=== PATIENT | female | born 1945 | race Caucasian/White ===

== ENCOUNTER 2018-05-27 18:25 | Emergency (ER) | payer MEDICARE, OTHER, SELFPAY ==
[2018-05-27 18:30] VITALS: BP 172/89; PULSE 113; RESP 19; TEMP 37.3; O2SAT 98; BMI 31.2
--- NOTE | 2018-05-27 19:18 | ED_ITS ---
HPI - Nausea/Vomiting/Diarrhea General Chief complaint: Nausea/Vomiting/Diarrhea Stated complaint: SENT BY EMS FOR FLUIDS/ LABWORK Time Seen by Provider: 05/27/18 18:49 Source: patient Mode of arrival: ambulatory Limitations: no limitations History of Present Illness HPI Narrative: Patient is a 72-year-old female who several days ago had several episodes of nausea vomiting and diarrhea. She states she has not had any of those symptoms for the past 12 hr. [place] blood work done because she is stage IV renal failure she stated that she came to the emergency department just to have blood drawn. She states that her heart rate normally is just above 100. she reports no nausea vomiting. Related Data Home Medications Medication Instructions Recorded Confirmed lisinopril #0 06/17/16 Previous Rx's Medication Instructions Recorded citalopram 40 mg PO QDAY #90 tab 07/16/16 lisinopril-hydrochlorothiazide 1 tab PO QDAY #90 tab 07/16/16 nitrofurantoin monohyd/m-cryst 100 mg PO BID #10 cap 07/16/16 [Macrobid] Review of Systems Constitutional Denies fever(s) and Denies headache(s) ENT Ears, Nose, Mouth, and Throat: Denies vertigo and Denies headache(s) Cardiovascular Denies chest pain and Denies dyspnea Respiratory Denies dyspnea Gastrointestinal Gastrointestinal: Denies diarrhea, Denies nausea and Denies vomiting Genitourinary Denies dysuria Musculoskeletal Denies myalgias and Denies arthralgias Integumentary/Breasts Denies rash Neurologic Denies vertigo and Denies headache(s) PFSH Medical History Renal disease (Acute) Surgical History No pertinent past surgical history (Acute) Social History Smoking Status: Never smoker Exam Initial Vital Signs Initial Vital Signs: Vital Signs Temperature 99.2 F 05/27/18 18:30 Pulse Rate 113 H 05/27/18 18:30 Respiratory Rate 19 05/27/18 18:30 Blood Pressure 172/89 H 05/27/18 18:30 Pulse Oximetry 98 05/27/18 18:30 Const General: cooperative, healthy appearing, comfortable, well developed, well groomed and No acute distress Orientation: alert, awake and oriented x3 HENMT Head: normal to inspection and normocephalic Resp Effort & Inspection: normal respiratory effort Cardio Rate: tachycardic Rhythm: regular rhythm GI Inspection: non-distended Palpation: soft Skin Lesions: no lesions Rashes: no rashes Neuro General: alert, awake and oriented x3 Extrem General: normal to inspection and capillary refill normal Psych Appearance: grossly normal and well kempt Course Orders Ordered: ED Orders 05/27/18 19:32 Basic Metabolic Panel Stat Complete Blood Count AUTO DIFF Stat Vital Signs - 8 hr 05/27/18 18:30 Temperature 99.2 F Pulse Rate 113 H Respiratory Rate 19 Blood Pressure 172/89 H Pulse Oximetry 98 MDM - Nausea/Vomiting/Diarrhea Lab Data Attestation: I reviewed the patient's lab results. Result diagrams: 05/27/18 19:32 05/27/18 19:32 Lab Results 05/27/18 05/27/18 Range/Units 19:32 19:32 WBC 10.4 (4.5-11.0) X10^3/uL RBC 3.92 L (4.0-5.2) X10^6/uL Hgb 13.8 (12.0-16.0) g/dL Hct 40.3 (36-46) % MCV 102.9 H (80-100) fL MCH 35.2 H (26-34) PG MCHC 34.2 (30-36) % RDW 13.3 (11.6-14.8) % Plt Count 269 (150-400) X10^3/uL Neut % (Auto) 62.4 (50-75) % Lymph % (Auto) 29.5 (25-40) % [place] % (Auto) 7.5 (3-14) % Eos % (Auto) 0.2 L (2-4) % Baso % (Auto) 0.4 (0-2) % Neut # (Auto) 6500 H (0317-9605) /uL Sodium 141 (137-145) mmol/L Potassium 3.9 (3.4-5.1) mmol/L Chloride 104 (98-107) mmol/L Carbon Dioxide 22 (22-32) mmol/L BUN 23 H (7-17) mg/dL Creatinine 2.10 H (0.52-1.04) mg/dL Estimated GFR 23.1 L (>60) mL/min BUN/Creatinine Ratio 11.0 (6-22) Glucose 110 (80-110) mg/dL Calcium 9.5 (8.4-10.2) mg/dL MDM Narrative Medical decision making narrative: patient stated that she was only here to get her blood drawn. She did not want IV fluids. She states she was not nauseous. She did not want to stay for the results because she [place] I did draw the blood for her. I informed her that she needed to contact her primary care doctor tomorrow and request the results. She expressed understanding and agreement this plan. Discharge Plan Departure Patient Disposition: Home Clinical Impression: Nausea & vomiting, Renal disease Discharge Date/Time: 05/27/18 19:45 Interventions: ED Discharge Assessment Last Done: 05/27/18 19:44 Instructions: DI for Nausea -- Adult, DI for Vomiting -- Adult Activity Restrictions/Additional Instructions: per your request you were discharged today before your labs resulted. Call your primary care doctor tomorrow. He can contact the hospital to get the results of these labs. Return to the emergency department for any new or worsening symptoms Prescriptions: No Action lisinopril 5 mg Tablet Qty: 0 RF: 0 citalopram 40 MG tablet 40 mg PO QDAY Qty: 90 RF: 3 lisinopril-hydrochlorothiazide 20 MG/25 MG tablet 1 tab PO QDAY Qty: 90 RF: 3 nitrofurantoin monohyd/m-cryst [Macrobid] 100 MG capsule 100 mg PO BID Qty: 10 RF: 0
[2018-05-27 19:37] LABS: Add Manual Diff / Slide Review NO; Basophils Percent Auto 0.4 % (0-2); Eosinophils Percent Auto 0.2 % (2-4); Hematocrit 40.3 % (36-46); Hemoglobin 13.8 g/dL (12.0-16.0); Lymphocytes Percent Auto 29.5 % (25-40); Mean Corpuscular HGB Conc 34.2 % (30-36); Mean Corpuscular Hemoglobin 35.2 PG (26-34); Mean Corpuscular Volume 102.9 fL (80-100); Monocytes Percent Auto 7.5 % (3-14); Neutrophils Absolute Auto 6500 /uL (3000-5900); Neutrophils Percent Auto 62.4 % (50-75); Platelet Count 269 X10^3/uL (150-400); Red Blood Cell Count 3.92 X10^6/uL (4.0-5.2); Red Cell Distribution Width 13.3 % (11.6-14.8); White Blood Cell Count 10.4 X10^3/uL (4.5-11.0)
[2018-05-27 19:49] LABS: Blood Urea Nitrogen 23 mg/dL (7-17); Calcium 9.5 mg/dL (8.4-10.2); Carbon Dioxide 22 mmol/L (22-32); Chloride 104 mmol/L (98-107); Estimated Glomerular Filt Rate 23.1 mL/min (>60); Glucose 110 mg/dL (80-110); HEMOLYSIS < 15 (0-50); Potassium 3.9 mmol/L (3.4-5.1); Sodium 141 mmol/L (137-145)
== END 2018-05-27 19:45 | disposition home or self-care (01) ==
PROVIDERS: Emergency Provider Emergency Medicine; Family Provider Family Medicine; PCP Student in an Organized Health Care Education/Training Program
DX: N28.9 Disorder of kidney and ureter, unspecified (principal); R11.2 Nausea with vomiting, unspecified
CPT/HCPCS: 80048; 85025; 99282; 99283

== ENCOUNTER → 2018-12-13 09:54 | Outpatient (CLI) | payer MEDICARE, OTHER, SELFPAY ==
--- NOTE | 2018-12-13 | DI.CT.S_ITS ---
PROCEDURE: CT KIDNEY URETER BLADDER (KUB) INDICATIONS: CALCULUS OF KIDNEY TECHNIQUE: Noncontrast 5 mm thick sections acquired from the diaphragms to the symphysis. 5 mm thick coronal and sagittal reformats were then performed. For radiation dose reduction, the following was used: automated exposure control, adjustment of mA and/or kV according to patient size. COMPARISON: None. FINDINGS: Image quality: Excellent. Lung bases: Lung bases are clear. Heart size is normal. Bilateral breast implants partially visualized, partially calcified, showing no evidence of implant rupture. Urinary system: Both kidneys are normal in size. There are several right-sided nonobstructive 1-2 mm renal collecting system calculi, best seen at the middle and lower thirds of the collecting system of the right kidney. The patient has reportedly undergone left-sided lithotripsy one week ago, and there is a 3 mm calculus within the lower third collecting system of the left kidney, nonobstructive, seen on series 2 image 43. No hydronephrosis or perinephric fat stranding. Both ureters appear non-dilated throughout their expected courses. Bladder wall thickness is normal; no calcified bladder stones. A double pigtail left ureteral stent is in normal position. Other solid organs: Liver is normal in size. Gallbladder is not seen. Pancreas is normal in contours. Spleen is normal in size. No adrenal nodules. Peritoneum and bowel: Unenhanced bowel loops demonstrate normal wall thickness and caliber. No free fluid or air. Nodes and vessels: No retroperitoneal or mesenteric adenopathy by size criteria. Aorta and inferior vena cava are normal in caliber. Abdominal wall: No ventral hernias. Pelvis: No free pelvic fluid. No inguinal hernias or adenopathy. Bones: No suspicious bony lesions. No vertebral body compression fractures. IMPRESSION: 1. Residual 3 mm nonobstructive calculus is present within the lower third left renal collecting system in this patient who reportedly has undergone left-sided lithotripsy approximately one week ago. 2. The course of the double pigtail left ureteral catheter shows no adjacent calculus within the limits of resolution of this study, with upper and lower pigtails in normal position. No perinephric inflammation or hematoma seen. Incidental note is made of several 1-2 mm right lower third renal collecting system nonobstructive calculi. Dictated by: Kendrick Milan M.D. on 12/13/2018 at 11:04 Approved by: Kendrick Milan M.D. on 12/13/2018 at 11:17
== END ==
PROVIDERS: Visit Provider Specialist
DX: N20.0 Calculus of kidney (principal); Z96.0 Presence of urogenital implants
CPT/HCPCS: 74176

== ENCOUNTER 2021-06-30 16:57 | Observation (INO) | payer MEDICARE, OTHER, SELFPAY ==
[2021-06-30] VITALS (21 sets, daily range): BP systolic 124–185; BP diastolic 57–88; PULSE 100–120; RESP 8–31; TEMP 36.4–36.7; O2SAT 90–97; BMI 28.8
--- NOTE | 2021-06-30 17:03 | DI.CT.S_ITS ---
PROCEDURE: CT ABDOMEN PELVIS WO CON INDICATIONS: n/v/d since , abd pain, stage 4 CKD TECHNIQUE: Noncontrast 5 mm thick sections acquired from the diaphragms to the symphysis. 5 mm coronal and sagittal reformats were then performed. For radiation dose reduction, the following was used: automated exposure control, adjustment of mA and/or kV according to patient size. COMPARISON: [facility], CT, ABDOMEN/PELVIS WITHOUT CONTRAS, 06/19/2016, 12:27. FINDINGS: Image quality: Excellent. ABDOMEN: Lung bases: Lung bases are clear. Heart size is normal. Moderate coronary artery calcifications. Bilateral calcified breast implants. Solid organs: Liver is normal in size. Interval resolution of diffuse hepatic steatosis. Gallbladder is likely surgically absent . Pancreas is normal in contours. Spleen is normal in size. No adrenal nodules. There is no hydronephrosis. There are bilateral nonobstructing renal stones. Interval increase in size of individual renal stones. Peritoneum and bowel: Jejunal loops are mildly dilated. Ileal loops are decompressed. Findings are consistent with earlier partial small bowel obstruction. Nodes and vessels: No retroperitoneal or mesenteric adenopathy by size criteria. Aorta and inferior vena cava are normal in caliber. Miscellaneous: No ventral hernias. PELVIS: Genitourinary: Bladder wall thickness is normal. Miscellaneous: No inguinal hernias or adenopathy. Uterus is surgically absent. Bones: Bilateral total hip arthroplasties result in significant metallic artifact in the pelvis. Lumbar degenerative change. No lytic or blastic bony lesions. No compression fractures. IMPRESSION: 1. Findings are consistent with earlier partial small bowel obstruction. 2. Remote hysterectomy and cholecystectomy. 3. Resolution of hepatic steatosis. 4. Bilateral nephrolithiasis. Dictated by: Rosendo Olson M.D. on 06/30/2021 at 18:16 Approved by: Rosendo Olson M.D. on 06/30/2021 at 18:23
--- NOTE | 2021-06-30 17:04 | ED.ABDPAIN ---
HPI - Abdominal Pain General Chief Complaint: Weakness Stated Complaint: Gen. Weakness Time Seen by Provider: 06/30/21 17:02 Source: patient and EMS Mode of arrival: EMS Limitations: no limitations History of Present Illness HPI narrative: 75-year-old female comes emergency department with 4 days of nausea, vomiting and diarrhea. Patient states she had nausea for the 1st 2 days she has been taking Zofran which has helped that she has been able take some Pedialyte but she has continued to have diarrhea and generalized abdominal pain. Patient states she has felt shaky, had cramping in her extremities. She has not had fevers or chills. No cough cold or congestion. No chest pain or shortness of breath. She complains of abdominal discomfort it is not localized any particular area. No back or flank pain. She denies urinary symptoms. She has a history significant for stage 4 chronic kidney disease she states that she sees a auto hauler Dr. Larose but there has not been any discussion of dialysis. She also follows with Dr. Roman as she has had a history of kidney stones and had septic shock was in the ICU for a week with obstructing kidney stones several years ago. Patient denies any bright red blood or black in her diarrheal stools. She has 4-5 times daily but states not very much stool. She is allergic to [place]. No tobacco, alcohol or illicit. She lives on [address] She saw the medics on Thursday they gave her Zofran encouraged her to call them back if she was not improving she did today ultimately they contacted her left and she was airlifted here. She was slightly tachycardic at the 100 range for air left but no other major vital sign abnormalities in route. Related Data Home Medications Medication Instructions Recorded Confirmed lisinopril 5 mg tablet #0 06/17/16 Previous Rx's Medication Instructions Recorded citalopram 40 mg tablet 40 mg PO QDAY #90 tab 07/16/16 lisinopril 20 1 tab PO QDAY #90 tab 07/16/16 mg-hydrochlorothiazide 25 mg tablet nitrofurantoin 100 mg PO BID #10 cap 07/16/16 monohydrate/macrocrystals 100 mg capsule (Macrobid) Allergies Allergy/AdvReac Type Severity Reaction Status Date / Time pentazocine [From [place]] Allergy Verified 06/30/21 18:48 Review of Systems Review of Systems ROS Unobtainable: All systems reviewed & are unremarkable except as noted in HPI and below Patient History Medical History Renal disease Surgical History No pertinent past surgical history Social History Smoking Status: Never smoker Smoking Status: Never smoker Substance Use Type: does not use Exam Narrative Exam Narrative: GENERAL: Alert and oriented x three, female in mild distress. HEENT: Head normocephalic, atraumatic, EOMI, pupils reactive, face symmetric, moist mucous membranes NECK: Supple, full range of motion CARDIOVASCULAR: Regular rate and rhythm without murmurs, rubs or gallops. RESPIRATORY: Breath sounds equal bilaterally, no wheezes rales or rhonchi. ABDOMEN: Soft, generalized tenderness. Nondistended. bowel sounds all 4 quadrants. No guarding or rebound, rigidity, no mass : No CVA tenderness EXTREMITIES: Normal range of motion, no clubbing or edema. Neurovascularly intact NEUROLOGICAL: Cranial nerves II through XII grossly intact. Moving all extremities SKIN: Warm, dry, no petechiae, no rashes or lesions. Initial Vital Signs Initial Vital Signs: Vital Signs Temperature 97.6 F 06/30/21 17:01 Pulse Rate 100 H 06/30/21 17:01 Respiratory Rate 18 06/30/21 17:01 Blood Pressure 161/70 H 06/30/21 17:01 Pulse Oximetry 96 06/30/21 17:01 Course Orders Ordered: ED Orders 06/30/21 17:02 GI Panel (Film Array) Stat 06/30/21 17:03 CT abdomen pelvis wo con Stat 06/30/21 17:17 COVID19 -Nasal swab/Pre-Proc Stat 06/30/21 17:40 Complete Blood Count AUTO DIFF Stat Comprehensive Metabolic Panel Stat Lactate (Lactic Acid) Stat Lipase Stat MAG [Magnesium] Stat Troponin I Stat 06/30/21 17:50 Blood Culture Stat Magnesium Sulfate (Magnesium Sulfate) 2 gm in 50 mls @ 25 mls/hr IV NOW ONE Stop: 06/30/21 20:28 Last Admin: 06/30/21 18:50 Dose: 25 mls/hr Documented by: BTJANER Cosigned by: KAN Discontinued Medications Sodium Chloride (Normal Saline 0.9%) 1,000 mls @ 1,000 mls/hr IV BOLUS ONE Stop: 06/30/21 18:01 Ondansetron HCl (Ondansetron 4 Mg/2 Ml Inj) 4 mg IV NOW ONE Stop: 06/30/21 17:03 Last Admin: 06/30/21 18:50 Dose: 4 mg Documented by: BTONER Potassium Chloride (Potassium Chloride 20 Meq/15 Ml Udc) 40 meq PO NOW ONE Stop: 06/30/21 18:23 Last Admin: 06/30/21 18:50 Dose: 40 meq Documented by: BTONER Reevaluation(s) Reevaluation #1: Reviewed patient's findings. She is full code. Reviewed her electrolyte abnormalities, renal function which is at her baseline she states her GFR is typically 29. She is amenable to admission. Patient also aware that she will be boarding overnight in the emergency department although accepted by the hospitalist. Consultations Consultation #1: Dr. Wade, accepts for admission for vomiting and diarrhea, multiple lecture light abnormalities, tachycardiac in the setting of stage 4 kidney disease. Possible partial small-bowel obstruction on CT imaging but patient has not been vomiting for the last [address] Wade defers general surgery consult will contact if patient has persistent symptoms or change in her exam. Lactate is still pending. Vital Signs Vital signs: Vital Signs - 8 hr 06/30/21 17:01 06/30/21 17:29 06/30/21 17:30 Temperature 97.6 F Pulse Rate 100 H 104 H 104 H Respiratory Rate Blood Pressure 161/70 H Pulse Oximetry 96 97 96 06/30/21 18:00 06/30/21 18:30 Temperature Pulse Rate 104 H 120 H Respiratory Rate 26 H Blood Pressure Pulse Oximetry 96 MDM - Abdominal Pain Lab Data Result diagrams: 06/30/21 17:40 06/30/21 17:40 Labs: Lab Results 06/30/21 06/30/21 06/30/21 Range/Units 17:17 17:40 17:40 WBC 14.4 H (4.5-11.0) X10^3/uL RBC 3.40 L (4.0-5.2) X10^6/uL Hgb 12.0 (12.0-16.0) g/dL Hct 34.9 L (36-46) % MCV 102.9 H (80-100) fL MCH 35.4 H (26-34) PG MCHC 34.4 (30-36) % RDW 14.1 (11.6-14.8) % Plt Count 135 L (150-400) X10^3/uL Neut % (Auto) 80.1 H (50-75) % Lymph % (Auto) 14.6 L (25-40) % [place] % (Auto) 4.8 (3-14) % Eos % (Auto) 0.1 L (2-4) % Baso % (Auto) 0.4 (0-2) % Neut # (Auto) 78713 H (8515-5873) /uL Lymph # (Auto) 2100 (5859-5316) /uL [place] # (Auto) 700 (0-900) /uL Eos # (Auto) 0 (0-450) /uL Baso # (Auto) 100 (0-100) /uL Sodium 130 L (137-145) mmol/L Potassium 3.1 L (3.4-5.1) mmol/L Chloride 102 (98-107) mmol/L Carbon Dioxide 23 (22-32) mmol/L BUN 14 (7-17) mg/dL Creatinine 1.71 H (0.52-1.04) mg/dL Estimated GFR 29.0 L (>60) mL/min BUN/Creatinine Ratio 8.2 (6-22) Glucose 119 H (80-110) mg/dL Lactate (0.7-2.1) mmol/L Calcium 8.6 (8.4-10.2) mg/dL Magnesium (1.6-2.3) mg/dL Total Bilirubin 1.1 (0.2-1.3) mg/dL AST 37 H (14-36) IU/L ALT 20 (<35) IU/L Alkaline Phosphatase 54 (38-126) U/L Troponin I 0.029 (0.01-0.034) ng/mL Total Protein 6.4 (6.3-8.2) g/dL Albumin 3.6 (3.5-5.0) g/dL Globulin 2.8 (1.7-4.1) g/dL Albumin/Globulin Ratio 1.3 (1.0-2.8) Lipase 99 (23-300) U/L SARS-CoV-2 (PCR) Negative (Negative) 06/30/21 06/30/21 Range/Units 17:40 17:40 WBC (4.5-11.0) X10^3/uL RBC (4.0-5.2) X10^6/uL Hgb (12.0-16.0) g/dL Hct (36-46) % MCV (80-100) fL MCH (26-34) PG MCHC (30-36) % RDW (11.6-14.8) % Plt Count (150-400) X10^3/uL Neut % (Auto) (50-75) % Lymph % (Auto) (25-40) % [place] % (Auto) (3-14) % Eos % (Auto) (2-4) % Baso % (Auto) (0-2) % Neut # (Auto) (8829-7341) /uL Lymph # (Auto) (9467-2075) /uL [place] # (Auto) (0-900) /uL Eos # (Auto) (0-450) /uL Baso # (Auto) (0-100) /uL Sodium (137-145) mmol/L Potassium (3.4-5.1) mmol/L Chloride (98-107) mmol/L Carbon Dioxide (22-32) mmol/L BUN (7-17) mg/dL Creatinine (0.52-1.04) mg/dL Estimated GFR (>60) mL/min BUN/Creatinine Ratio (6-22) Glucose (80-110) mg/dL Lactate 1.9 (0.7-2.1) mmol/L Calcium (8.4-10.2) mg/dL Magnesium 0.9 L* (1.6-2.3) mg/dL Total Bilirubin (0.2-1.3) mg/dL AST (14-36) IU/L ALT (<35) IU/L Alkaline Phosphatase (38-126) U/L Troponin I (0.01-0.034) ng/mL Total Protein (6.3-8.2) g/dL Albumin (3.5-5.0) g/dL Globulin (1.7-4.1) g/dL Albumin/Globulin Ratio (1.0-2.8) Lipase (23-300) U/L SARS-CoV-2 (PCR) (Negative) Imaging Data CT scan - abdomen/pelvis: Radiologist's Impression: [address] [address] [address] Scan Report Signed Patient: Anthony Sepulveda MR#: [id number] : 1945 Acct:[id number] Age/Sex: 75 / F Date of Service: 06/30/21 Loc: ED Accession Number: [id number] ?? Procedure: CT abdomen pelvis wo con Ordering Provider: Chelsea Moyer D.O. PROCEDURE:? CT ABDOMEN PELVIS WO CON ? INDICATIONS:? n/v/d since , abd pain, stage 4 CKD ? TECHNIQUE:? Noncontrast 5 mm thick sections acquired from the diaphragms to the symphysis.? 5 mm coronal and sagittal reformats were then performed.? For radiation dose reduction, the following was used:? automated exposure control, adjustment of mA and/or kV according to patient size.? ? COMPARISON:? [facility], CT, ABDOMEN/PELVIS WITHOUT CONTRAS, 06/19/2016, 12:27. ? FINDINGS:? Image quality:? Excellent.? ? ABDOMEN:? Lung bases:? Lung bases are clear.? Heart size is normal.? Moderate coronary artery calcifications.? Bilateral calcified breast implants. ? Solid organs:? Liver is normal in size.? Interval resolution of diffuse hepatic steatosis.? Gallbladder is likely surgically absent .? Pancreas is normal in contours.? Spleen is normal in size.? No adrenal nodules.? There is no hydronephrosis.? There are bilateral nonobstructing renal stones.? Interval increase in size of individual renal stones. ? Peritoneum and bowel:? Jejunal loops are mildly dilated.? Ileal loops are decompressed.? Findings are consistent with earlier partial small bowel obstruction. ? Nodes and vessels:? No retroperitoneal or mesenteric adenopathy by size criteria.? Aorta and inferior vena cava are normal in caliber.? ? Miscellaneous:? No ventral hernias.? ? ? PELVIS:? Genitourinary:? Bladder wall thickness is normal.? ? Miscellaneous:? No inguinal hernias or adenopathy.? Uterus is surgically absent. ? Bones:? Bilateral total hip arthroplasties result in significant metallic artifact in the pelvis. Lumbar degenerative change.? No lytic or blastic bony lesions.? No compression fractures. ? ? IMPRESSION:? ? 1. Findings are consistent with earlier partial small bowel obstruction. ? 2. Remote hysterectomy and cholecystectomy. ? 3. Resolution of hepatic steatosis. ? 4. Bilateral nephrolithiasis.? ? ? Dictated by: Rosendo Olson M.D. on 06/30/2021 at 18:16 ? ? Approved by: Rosendo Olson M.D. on 06/30/2021 at 18:23?? ECG Data Attestation: I personally reviewed and interpreted this ECG as follows: Prior ECG tracings: not available for review Interpretation: Sinus rhythm. Left axis deviation. Nonspecific change. Q-wave in 3, AVF. MDM Narrative Medical decision making narrative: This is a 75-year-old female comes in with generalized weakness, cramping with 4 days of persistent diarrhea and the initial 2 days of vomiting which has resolved after using Zofran regularly. Patient has known chronic kidney disease stage 4 states her GFR is typically 29. She is on several medications for blood pressure and diuretic. Patient's labs show multiple electrolyte abnormalities although a stable renal function. Troponin is 0.029 with no acute EKG changes and no chest pain or shortness of breath. She has been persistently tachycardic. She has received fluids CT without contrast shows a possible partial small obstruction. Patient has not been having any emesis in the department for the past 2 days so this continue to be monitored. Spoke with hospitalist service who accepts. Electrolyte replacement was initiated here in the department. Discharge Plan Departure Patient Disposition: Admitted as Observation Clinical Impression: Partial obstruction of small intestine, Abnormal blood electrolyte level, Hyponatremia, Hypomagnesemia, Hypokalemia, CKD (chronic kidney disease), Nausea, vomiting, and diarrhea Admit Date/Time: 06/30/21 18:40 Admit Provider: Douglas Wade
[2021-06-30 17:36] LABS: COVID19 -Nasal RAPID Negative (Negative)
[2021-06-30 18:01] LABS: Add Manual Diff / Slide Review NO; Basophils Absolute Auto 100 /uL (0-100); Basophils Percent Auto 0.4 % (0-2); Eosinophils Absolute Auto 0 /uL (0-450); Eosinophils Percent Auto 0.1 % (2-4); Hematocrit 34.9 % (36-46); Lymphocytes Absolute Auto 2100 /uL (1100-4500); Lymphocytes Percent Auto 14.6 % (25-40); Mean Corpuscular HGB Conc 34.4 % (30-36); Mean Corpuscular Hemoglobin 35.4 PG (26-34); Mean Corpuscular Volume 102.9 fL (80-100); Monocytes Absolute Auto 700 /uL (0-900); Monocytes Percent Auto 4.8 % (3-14); Neutrophils Absolute Auto 11500 /uL (1500-7000); Neutrophils Percent Auto 80.1 % (50-75); Platelet Count 135 X10^3/uL (150-400); Red Cell Distribution Width 14.1 % (11.6-14.8); White Blood Cell Count 14.4 X10^3/uL (4.5-11.0)
[2021-06-30 18:14] LABS: Alanine Aminotransferase 20 IU/L (<35); Albumin 3.6 g/dL (3.5-5.0); Albumin Globulin Ratio 1.3 (1.0-2.8); Alkaline Phosphatase 54 U/L (38-126); Aspartate Aminotransferase 37 IU/L (14-36); BUN Creatinine Ratio 8.2 (6-22); Bilirubin Total 1.1 mg/dL (0.2-1.3); Blood Urea Nitrogen 14 mg/dL (7-17); Calcium 8.6 mg/dL (8.4-10.2); Carbon Dioxide 23 mmol/L (22-32); Chloride 102 mmol/L (98-107); Globulin 2.8 g/dL (1.7-4.1); Glucose 119 mg/dL (80-110); HEMOLYSIS < 15 (0-50); Lipase 99 U/L (23-300); Potassium 3.1 mmol/L (3.4-5.1); Sodium 130 mmol/L (137-145); Total Protein 6.4 g/dL (6.3-8.2)
[2021-06-30 18:26] LABS: Troponin I 0.029 ng/mL (0.01-0.034)
[2021-06-30 18:29] LABS: Magnesium 0.9 mg/dL (1.6-2.3)
[2021-06-30] MEDS: POTASSIUM CHLORIDE 20 MEQ/15 ML UDC 40 MEQ PO (18:50)
[2021-06-30] MEDS: ONDANSETRON 4 MG/2 ML INJ IV (18:50)
[2021-06-30] MEDS: MAGNESIUM SULFATE 2 GM/50 ML PIGGYBACK IV (18:50)
[2021-06-30 19:04] LABS: Lactate (Lactic Acid) 1.9 mmol/L (0.7-2.1)
[2021-06-30 20:05] LABS: Phosphorous 1.6 mg/dL (2.8-4.1)
[2021-06-30 20:09] LABS: COVID19 - ADMIT (NP swab/PCR) Negative (Negative)
[2021-06-30 20:22] LABS: Procalcitonin 0.65 ng/mL (<0.5)
[2021-06-30] MEDS: LORazepam 2 MG/ML INJ 1 MG IV (20:59)
--- NOTE | 2021-06-30 21:46 | PM.HP.1 ---
History of Present Illness History of Present Illness Date Patient Seen: 06/30/21 Time Patient Seen: 19:48 Chief complaint: Gen. Weakness Narrative: Anthony Sepulveda?72-year-old female with a medical history of renal stones, CKD stage 4, septic shock, HTN, depression with anxiety, gastric by pass 1971, cholecystectomy, hysterectomy who presented for 3-4 days of severe nausea, vomiting, and liquid diarrhea.? Pt denies fever, body aches, chills, cough, sore throat, chest pain, SOB, hemoptysis, hematuria, or melena. [place] work done because she is stage IV renal failure she stated that she came to the emergency department just to have blood drawn.? Patient complains of constant generalized throbbing abd pain, that improves slightly and temperarily with stooling, the patient has had 4 liquid stools and episodes of vomiting while in the ED. the patient reports that she had gastric bypass surgery done in 1971, hysterectomy, and cholecystectomy. She has been hospitalized in 2018 for septic shock secondary to a bacterial infection that was similar in chronic diarrhea to this. The patient reports that she has chronic diarrhea fairly consistently and takes Imodium 4 tablets in the morning and 4 tablets at night chronically for years, she also takes Lomotil regularly. The patient a colonoscopy last in the she states that Dr. Roman urology had assisted in the management of her diarrhea prior but she has not seen him in a year. Patient's accreditation specialist is Dr. Larose. But the patient states that she has never had diarrhea and vomiting to this degree prior. Patient denies any changes in medication, travel, food, recent illness, injury, or exposure. Patient notes that she has had a decreased appetite for the past several weeks, increased depressive and anxiety symptoms, without suicidal ideation. The patient also has a cat scratch injury to her lower left leg, with a secondary injury to her lower right leg. Patient presented with temp 97.6?, BP 161/70, HR 104-120, R 20 2-26, O2 saturation 93% on room air. WBC 14.4, with a left shift neutrophils 11,500, HCT 34.9, platelets 135, hyponatremia 130, hypokalemia 3.1, hypomagnesia 0.9, creatinine 1.71 (Digester Operator 05/2018-2.1, GFR 23.1) GFR 29, glucose 119, troponin 0.029. Patient meets SIRS/sepsis criteria: Sofa score 3. Patient's EKG I personally reviewed NSR at a rate of 100, left axis deviation, low QRS voltage, without ST or T-wave changes. Patient's abdomen pelvis CT was suggestive of possible early partial small-bowel obstruction, bilateral nephrolithiasis. Dr. Wdae Hospitalist reviewed imaging and felt that surgery did not need to be contacted at this time for consult. Patient admitted for sepsis due to diarrhea resulting in hyponatremia, hypokalemia, and hypomagnesia, possible partial small-bowel obstruction. Patient History Medical History CKD stage 4 secondary to hypertension Depression with anxiety Essential hypertension History of renal calculi History of septic shock Renal disease Surgical History (Updated 06/30/21 @ 22:18 by YANDEL Ortega-MARIELENA) History of bilateral hip replacements History of cervical spinal arthrodesis History of cholecystectomy History of gastric bypass History of hysterectomy History of laminectomy Family & Social History Family History (Updated 06/30/21 @ 22:20 by YANDEL Ortega-MARIELENA) Mother Asthma Father Heart disease Heart attack Social History: Patient lives with her daughter and is retired Safety & Behavioral: Patient feel safe in her home. Tobacco & Substance use: Alcohol: rarely Smoking Status Never smoker Substance Use Type does not use Meds Home Medications and Allergies Home Medications Medication Instructions Recorded Confirmed Type citalopram 40 mg tablet 40 mg PO QDAY #90 tab 07/16/16 06/30/21 Rx acetaminophen 325 mg tablet 650 mg PO Q6H PRN 06/30/21 06/30/21 History acetaminophen-caffeine 500 mg-65 2 tab PO Q6H PRN 06/30/21 06/30/21 History mg tablet (Excedrin Tension Headache) calcitriol 0.5 mcg capsule 0.5 mcg PO QAM 06/30/21 06/30/21 History carvedilol 6.25 mg tablet See Rx Instructions .ROUTE .COMPLEX 06/30/21 06/30/21 History diphenoxylate-atropine 2.5 1 tab PO DAILY PRN 06/30/21 06/30/21 History mg-0.025 mg tablet (Lomotil) hydrochlorothiazide 12.5 mg capsule 12.5 mg PO DAILY 06/30/21 06/30/21 History hydrocodone 10 mg-acetaminophen 1 tab PO PRN PRN 06/30/21 06/30/21 History 325 mg tablet loperamide 2 mg capsule 4 mg PO BID 06/30/21 06/30/21 History omeprazole 40 mg capsule,delayed 4 mg PO 3-4XD PRN 06/30/21 06/30/21 History release omeprazole 40 mg capsule,delayed 40 mg PO DAILY 06/30/21 06/30/21 History release potassium citrate 10 mEq (1,080 10 meq PO DAILY 06/30/21 06/30/21 History mg) tablet,extended release trazodone 50 mg tablet 100 mg PO QPM 06/30/21 06/30/21 History triamcinolone acetonide 55 mcg 2 spray INTRANASAL PRN PRN 06/30/21 06/30/21 History nasal spray aerosol (Nasacort) vitamin B complex 1 tab PO DAILY 06/30/21 06/30/21 History Allergies Allergy/AdvReac Type Severity Reaction Status Date / Time pentazocine [From Nicki] Allergy Verified 06/30/21 18:48 Review of Systems Review of Systems Narrative: All 12 point systems reviewed with the patient and are negative except otherwise documented. Exam Vital Signs (past 8 hours): - 06/30/21 17:01 06/30/21 17:29 06/30/21 17:30 Temperature 97.6 F Pulse Rate 100 H 104 H 104 H Respiratory Rate 18 22 22 Blood Pressure 161/70 H Pulse Oximetry 96 97 96 06/30/21 18:00 06/30/21 18:30 06/30/21 19:00 Temperature Pulse Rate 104 H 120 H 109 H Respiratory Rate 26 H 25 H Blood Pressure Pulse Oximetry 96 06/30/21 19:18 06/30/21 19:30 06/30/21 20:00 Temperature Pulse Rate 104 H 106 H 100 H Respiratory Rate 22 23 23 Blood Pressure 124/57 L 136/74 Pulse Oximetry 93 96 93 06/30/21 20:01 06/30/21 20:30 06/30/21 20:31 Temperature Pulse Rate 100 H 108 H 106 H Respiratory Rate 24 8 L 12 Blood Pressure 146/69 H 154/72 H Pulse Oximetry 95 96 96 06/30/21 21:00 Temperature Pulse Rate 102 H Respiratory Rate 28 H Blood Pressure Pulse Oximetry 95 Oxygen Delivery Method Room Air Narrative Exam Narrative: General: Patient is a well-developed, well-nourished pale, anxious, ill appearing, tachypneic female in no acute distress at this time. HEENT: Normocephalic, atraumatic, extraocular muscles intact, oral pharynx is clear and mucous membranes are dry. Neck is supple and symmetric, trachea is midline, no adenopathy, no thyroid enlargement, nontender, no masses palpated. Negative for JVD Chest: Normal AP diameter and contour without kyphoscoliosis, no nasal flaring, retractions, positive for tachypneic breathing. Lungs: Auscultation of all lung hebert are clear without adventitious sounds, wheezes, rhonchi, or rales. Cardio: Tachycardic rate and rhythm without murmur, rubs, or gallops, no carotid bruit, no cardiac pulsations present. Abdomen: Soft positive diffuse tenderness, unable to palpate for organomegaly, or masses due to pain. Bowel sounds are present in all 4 quadrants, no CVA tenderness. Musculoskeletal: Muscle strength and tone are equal within normal limits, no deformity, crepitus, effusions, cyanosis, or clubbing present. Positive bilateral lower extremity +3 pitting edema. Range of motion intact radial and pedal pulses are normal. Skin: Warm dry and intact without rashes, ulcerations or petechiae. Patient has bilateral lower anterior calf injuries with scabbing present, left noted healing, no signs of infection (cat scratch injury), right scab has erythemic edges present without signs of infection. Neuro: Alert and orientated x3, strength is +5/5 in all extremities, sensation to touch intact, no gross deficits noted of cranial nerves. Psych: Patient has a well-kept appearance, depressed affect, mental status attitude thought context and judgment are mostly appropriate for age. Objective Labs Result Diagrams: 06/30/21 17:40 06/30/21 17:40 Labs: Laboratory Results - last 24 hr 06/30/21 06/30/21 06/30/21 17:17 17:40 17:40 WBC 14.4 H RBC 3.40 L Hgb 12.0 Hct 34.9 L MCV 102.9 H MCH 35.4 H MCHC 34.4 RDW 14.1 Plt Count 135 L Neut % (Auto) 80.1 H Lymph % (Auto) 14.6 L [place] % (Auto) 4.8 Eos % (Auto) 0.1 L Baso % (Auto) 0.4 Neut # (Auto) 23050 H Lymph # (Auto) 2100 [place] # (Auto) 700 Eos # (Auto) 0 Baso # (Auto) 100 Sodium 130 L Potassium 3.1 L Chloride 102 Carbon Dioxide 23 BUN 14 Creatinine 1.71 H Estimated GFR 29.0 L BUN/Creatinine Ratio 8.2 Glucose 119 H Lactate Calcium 8.6 Phosphorus Magnesium Total Bilirubin 1.1 AST 37 H ALT 20 Alkaline Phosphatase 54 Troponin I 0.029 Total Protein 6.4 Albumin 3.6 Globulin 2.8 Albumin/Globulin Ratio 1.3 Lipase 99 Procalcitonin C. difficile Tox (PCR) SARS-CoV-2 (PCR) Negative 06/30/21 06/30/21 06/30/21 17:40 17:40 17:40 WBC RBC Hgb Hct MCV MCH MCHC RDW Plt Count Neut % (Auto) Lymph % (Auto) [place] % (Auto) Eos % (Auto) Baso % (Auto) Neut # (Auto) Lymph # (Auto) [place] # (Auto) Eos # (Auto) Baso # (Auto) Sodium Potassium Chloride Carbon Dioxide BUN Creatinine Estimated GFR BUN/Creatinine Ratio Glucose Lactate 1.9 Calcium Phosphorus 1.6 L Magnesium 0.9 L* Total Bilirubin AST ALT Alkaline Phosphatase Troponin I Total Protein Albumin Globulin Albumin/Globulin Ratio Lipase Procalcitonin C. difficile Tox (PCR) SARS-CoV-2 (PCR) 06/30/21 06/30/21 06/30/21 17:40 19:20 20:40 WBC RBC Hgb Hct MCV MCH MCHC RDW Plt Count Neut % (Auto) Lymph % (Auto) [place] % (Auto) Eos % (Auto) Baso % (Auto) Neut # (Auto) Lymph # (Auto) [place] # (Auto) Eos # (Auto) Baso # (Auto) Sodium Potassium Chloride Carbon Dioxide BUN Creatinine Estimated GFR BUN/Creatinine Ratio Glucose Lactate Calcium Phosphorus Magnesium Total Bilirubin AST ALT Alkaline Phosphatase Troponin I Total Protein Albumin Globulin Albumin/Globulin Ratio Lipase Procalcitonin 0.65 H C. difficile Tox (PCR) Cancelled SARS-CoV-2 (PCR) Negative Assessment & Plan Assessment & Plan narrative: Anthony Sepulveda?72-year-old female with a medical history of renal stones, CKD stage 4, septic shock, HTN, depression with anxiety, gastric by pass 1972, cholecystectomy, hysterectomy who presented for 3-4 days of severe nausea, vomiting, and liquid diarrhea.? She has been hospitalized in 2018 for septic shock secondary to a bacterial infection that was similar diarrhea to this. The patient reports that she has chronic diarrhea fairly consistently and takes Imodium 4 tablets in the morning and 4 tablets at night chronically for years, she also takes Lomotil regularly. This patient presents in sepsis and meets High Risk Host features, hospital admission for empiric high risk community-acquired antibiotic coverage as she is greater than 70 years of age, has comorbidities such as chronic kidney disease, essential hypertension, and has had a history of gastric bypass surgery, cholecystectomy, and hysterectomy. The patient is also had greater than 6 unformed stools in the past 24 hours. Patient admitted for sepsis due to diarrhea resulting in hyponatremia, hypokalemia, and hypomagnesia, possible partial small-bowel obstruction. 1. Sepsis as a result of hypovolemia secondary to vomiting and diarrhea, resulting in hyponatremia, hypokalemia, and hypomagnesia, with possible partial small-bowel obstruction, acute, present on admission -BP 161/70, HR 104-120, R 20 2-26, O2 saturation 93% on room air. -WBC 14.4, neut# 11,500, HCT 34.9, platelets 135, Na+130, K+3.1, Mag 0.9, procalcitonin 0.65 Patient meets SIRS/sepsis criteria: Sofa score 3. -EKG I personally reviewed NSR at a rate of 100, left axis deviation, low QRS voltage, without ST or T-wave changes. Patient's -Abdomen pelvis CT was suggestive of possible early partial small-bowel obstruction, bilateral nephrolithiasis. Dr. Wade Hospitalist reviewed imaging and felt that surgery did not need to be contacted at this time for consult. -Rule Out:(norovirus, rotavirus, adenoviruses, astrovirus, and others), bacteria (Salmonella,?Campylobacter,?Shigella, enterotoxigenic?Escherichia coli,?Clostridioides?[formerly?Clostridium]?difficile, and others), and protozoa (Cryptosporidium,?Giardia,?Cyclospora,?Entamoeba, and others) -blood cultures collected, GI panel, Stool cultres, Urine culture, Bartonella, CDiff -patient received 2 g magnesium in ED, 40 mEq potassium PO -sepsis fluid rehydration in ED, NS@80cc/hr -initiated Zosyn 4.5 q.8 hours and Flagyl -per High Risk Host coverage of enteric streptococci, Coliforms and anaerobes -Regular diet, unless vomiting resumes then change to NPO -Holding Immodium & lomital at this time due to patients chronic use, and low possibility of SBO (diarrhea/passing of stool continues), will continue to rehydrate and monitor volume & electrolytes status. May consider reinitiation, if liquid diarrhea is not improving with interventions. -Monitor telemedicine closely -risk of QT prolongation-is increased with combination with Zofran, and acetaminophen. Also monitor for torsades, cardiac arrest-in relation to chronic overuse Imodium and or Lomotil. 2. CKD stage 4 secondary to hypertension, acute on chronic, present on admission -Digester Operator 1.71 (Digester Operator 05/2018-2.1, GFR 23.1) GFR 29, glucose 119 -initial BP 161/70, 185/88 -continue patient's Coreg 3. Depression with anxiety, acute on chronic, present on admission -at the time of admit patient's depression 8/10, anxiety 7/10 without suicidal ideation -Ativan as needed for anxiety, continue patient's citalopram and trazodone 4. GERD, acute on chronic, present on admission -continue PPI 5. History of cervical spine fusion/ laminectomy, resulting in chronic back pain, acute on chronic, present on admission -continue hydrocodone Code status:Full Surrogate decision maker: Cheryl Couch COVID PCR:Negative COVID vaccination: Unknown DVT/VTE prophylaxis: Lovenox 30 and SCDs Disposition: Patient admitted for observation expected length of stay less than 2 midnights I have utilized all available immediate resources to obtain, update, or review the patient's current medications. I confirmed that the patient's advanced care plan is present, Code status is documented and/or surrogate decision maker is listed in the patient's medical record. Time Spent With Patient Critical Care time: I spent a total of [] minutes of critical care time on this patient's care today; this time is exclusive of procedural time. Scores GCS Rabia coma scale eye opening: Spontaneous Rabia coma scale verbal response: Orientated [place] coma scale motor response: Obey commands [place] coma scale total score: 15 SOFA PaO2/FIO2: < 400 mmHg Platelets: < 150 Bilirubin: < 1.2 mg/dL Hypotension: MAP >= 70 mmHg Rabia Coma Scale: 15 Renal: Creatinine 1.2-1.9 mg/dL SOFA Score: 3 Wells' Criteria for PE Clinical signs and symptoms of DVT: No PE is #1 Dx or equally likely: No Heart rate > 100: Yes Immobilization at least 3 days or surg in previous 4 weeks: Yes History of PE or DVT: No Hemoptysis: No Malignancy w/Treatment within 6 months or palliative: No Wells' PE Score total: 3.0
[2021-06-30 22:08] LABS: Campylobacter Not Detected (Not Detect)
[2021-06-30 22:09] LABS: Adenovirus F 40/41 Not Detected (Not Detect); Astrovirus Not Detected (Not Detect); Clostridium difficile toxin AB Not Detected (Not Detect); Cryptosporidium Not Detected (Not Detect); Cyclospora cayetanensis Not Detected (Not Detect); Entamoeba histolytica Not Detected (Not Detect); Enteroaggregative E.coli Not Detected (Not Detect); Enteropathogenic E.coli Not Detected (Not Detect); Enterotoxigenic E.coli It/st Not Detected (Not Detect); Giardia lamblia Not Detected (Not Detect); Norovirus GI/GII Not Detected (Not Detect); Plesiomonsa shigelloides Not Detected (Not Detect); Rotavirus A Not Detected (Not Detect); Salmonella Not Detected (Not Detect); Sapovirus Not Detected (Not Detect); Shiga-like toxin-prod E.coli Not Detected (Not Detect); Shigella/Enteroinvasive E.coli Not Detected (Not Detect); Vibrio Not Detected (Not Detect); Vibrio cholerae Not Detected (Not Detect); Yersinia enterocolitica Not Detected (Not Detect)
[2021-06-30 22:59] LABS: Appearance Urine UA SL CLOUDY; Bilirubin Urine UA NEGATIVE (NEGATIVE); Color Urine UA YELLOW; Glucose Urine UA NEGATIVE (Negative); Ketones Urine UA TRACE (NEGATIVE); Leukocyte Esterase Urine UA TRACE (NEGATIVE); Nitrite Urine UA NEGATIVE (Negative); Occult Blood Urine UA 1+ (Negative); Protein Urine UA TRACE (Negative); Urobilinogen Urine UA 0.2 E.U./dL (0.2)
[2021-06-30 23:23] LABS: Bacteria Urine Many (>30); RBC Urine None Seen (0-5/HPF); Squamous Epithelial Cell Urine 0-1 /HPF (0-5/HPF); WBC Urine 10-30/HPF (0-5/HPF)
[2021-06-30] MEDS: SODIUM CHLORIDE 0.9% 1,000 ML 80 ML IV (23:24)
[2021-06-30] MEDS: PIPERACILLIN/TAZO 4.5 GM in SODIUM CHLORIDE 0.9% 100 ML 25 ML IV (23:25)
[2021-06-30] MEDS: TRAZODONE 50 MG TABLET 100 MG PO (23:26)
[2021-06-30] MEDS: carvediloL 3.125 MG TABLET 6.25 MG PO (23:33)
[2021-06-30] MEDS: ACETAMINOPHEN 325 MG TABLET 650 MG PO (23:37)
[2021-07-01] VITALS (32 sets, daily range): BP systolic 136–153; BP diastolic 65–80; PULSE 85–109; RESP 19–41; TEMP 36.6–36.8; O2SAT 90–98; BMI 26.9
[2021-07-01] MEDS: metroNIDAZOLE 500 MG/100 ML PIGGYBACK 100 MG IV ×2 (00:07→07:02)
[2021-07-01] MEDS: ONDANSETRON 4 MG/2 ML INJ IV ×2 (04:59→12:34)
[2021-07-01 05:37] LABS: INR 1.2 (0.9-1.3); Prothrombin Time 13.5 SECONDS (10.1-12.7)
[2021-07-01 05:41] LABS: Add Manual Diff / Slide Review NO; Basophils Absolute Auto 0 /uL (0-100); Basophils Percent Auto 0.3 % (0-2); Eosinophils Absolute Auto 0 /uL (0-450); Eosinophils Percent Auto 0.4 % (2-4); Hematocrit 31.9 % (36-46); Hemoglobin 11.1 g/dL (12.0-16.0); Lymphocytes Absolute Auto 1500 /uL (1100-4500); Lymphocytes Percent Auto 17.4 % (25-40); Mean Corpuscular HGB Conc 34.7 % (30-36); Mean Corpuscular Hemoglobin 35.9 PG (26-34); Mean Corpuscular Volume 103.4 fL (80-100); Monocytes Absolute Auto 600 /uL (0-900); Monocytes Percent Auto 7.3 % (3-14); Neutrophils Absolute Auto 6600 /uL (1500-7000); Neutrophils Percent Auto 74.6 % (50-75); Platelet Count 101 X10^3/uL (150-400); Red Blood Cell Count 3.08 X10^6/uL (4.0-5.2); Red Cell Distribution Width 14.2 % (11.6-14.8); White Blood Cell Count 8.8 X10^3/uL (4.5-11.0)
[2021-07-01 05:45] LABS: Alanine Aminotransferase 18 IU/L (<35); Albumin 2.9 g/dL (3.5-5.0); Albumin Globulin Ratio 1.1 (1.0-2.8); Alkaline Phosphatase 46 U/L (38-126); Aspartate Aminotransferase 36 IU/L (14-36); BUN Creatinine Ratio 7.8 (6-22); Blood Urea Nitrogen 13 mg/dL (7-17); Calcium 7.9 mg/dL (8.4-10.2); Carbon Dioxide 24 mmol/L (22-32); Chloride 107 mmol/L (98-107); Estimated Glomerular Filt Rate 29.8 mL/min (>60); Globulin 2.6 g/dL (1.7-4.1); Glucose 106 mg/dL (80-110); HEMOLYSIS < 15 (0-50); Magnesium 1.5 mg/dL (1.6-2.3); Potassium 3.2 mmol/L (3.4-5.1); Sodium 132 mmol/L (137-145); Total Protein 5.5 g/dL (6.3-8.2)
[2021-07-01 05:58] LABS: Erythrocyte Sedimentation Rate 17 MM/HR (0-20)
[2021-07-01 06:10] LABS: C-Reactive Protein Quant 3.8 mg/dL (<1.0)
[2021-07-01 06:17] LABS: NT-proBNP (BNP-Adult 18+) 2480 pg/mL (<450)
[2021-07-01] MEDS: PIPERACILLIN/TAZO 4.5 GM in SODIUM CHLORIDE 0.9% 100 ML 200 ML IV (06:30)
[2021-07-01] MEDS: PANTOPRAZOLE DR 40 MG TABLET PO (06:30)
[2021-07-01] MEDS: LORazepam 2 MG/ML INJ 0.5 MG IV (07:37)
[2021-07-01] MEDS: MAGNESIUM SULFATE 2 GM/50 ML PIGGYBACK IV (08:12)
[2021-07-01] MEDS: ENOXAPARIN 30 MG/0.3 ML SYRINGE SUBCUT (09:21)
[2021-07-01] MEDS: carvediloL 3.125 MG TABLET 6.25 MG PO ×2 (09:53→22:52)
[2021-07-01] MEDS: CIPROFLOXACIN 250 MG TABLET PO ×2 (09:55→21:41)
[2021-07-01] MEDS: POTASSIUM CHLORIDE 20 MEQ TAB 40 MEQ PO (09:55)
[2021-07-01] MEDS: CITALOPRAM 10 MG TABLET 40 MG PO (09:55)
[2021-07-01] MEDS: ACETAMINOPHEN 325 MG TABLET 650 MG PO ×2 (12:34→21:41)
--- NOTE | 2021-07-01 13:12 | P.DS_ITS ---
History of Present Illness History of Present Illness Chief complaint: Gen Weakness Narrative: Anthony Sepulveda?72-year-old female with a medical history of renal stones, CKD stage 4, septic shock, HTN, depression with anxiety, gastric by pass 1971, cholecystectomy, hysterectomy who presented for 3-4 days of severe nausea, vomiting, and liquid diarrhea.? Pt denies fever, body aches, chills, cough, sore throat, chest pain, SOB, hemoptysis, hematuria, or melena.? [place] work done because she is stage IV renal failure she stated that she came to the emergency department just to have blood drawn.? Patient complains of constant generalized throbbing abd pain, that improves slightly and? temperarily with stooling, the patient has had 4 liquid stools and episodes of vomiting while in the ED. the patient reports that she had gastric bypass surgery done in 1971, hysterectomy, and cholecystectomy. She has been hospitalized in 2018 for septic shock secondary to a bacterial infection that was similar in chronic diarrhea to this.? The patient reports that she has chronic diarrhea fairly consistently and takes Imodium 4 tablets in the morning and 4 tablets at night chronically for years, she also takes Lomotil regularly.? The patient a colonoscopy last in the she states that Dr. Roman urology had assisted in the management of her diarrhea prior but she has not seen him in a year.? Patient's cigar sorter is Dr. Larose.? But the patient states that she has never had diarrhea and vomiting to this degree prior.? Patient denies any changes in medication, travel, food, recent illness, injury, or exposure.? Patient notes that she has had a decreased appetite for the past several weeks, increased depressive and anxiety symptoms, without suicidal ideation.? The patient also has a cat scratch injury to her lower left leg, with a secondary injury to her lower right leg. Patient presented with temp 97.6?, BP 161/70, HR 104-120, R 20 2-26, O2 saturation 93% on room air.? WBC 14.4, with a left shift neutrophils 11,500, HCT 34.9, platelets 135, hyponatremia 130, hypokalemia 3.1, hypomagnesia 0.9, creatinine 1.71 (Government Affairs Manager 05/2018-2.1, GFR 23.1) GFR 29, glucose 119, troponin 0.029.? Patient meets SIRS/sepsis criteria:? Sofa score 3.? Patient's EKG I personally reviewed NSR at a rate of 100, left axis deviation, low QRS voltage, without ST or T-wave changes.? Patient's abdomen pelvis CT was suggestive of possible early partial small-bowel obstruction, bilateral nephrolithiasis.? Dr. Wade Hospitalist reviewed imaging and felt that surgery did not need to be contacted at this time for consult.? Patient admitted for sepsis due to diarrhea resulting in hyponatremia, hypokalemia, and hypomagnesia, possible partial small-bowel obstruction. Discharge Providers Provider Date of admission: 06/30/21 18:40 Discharge Date: 07/01/21 Primary care physician: Erin Black MD Discharge provider: Douglas Wade MD Summary Hospital Course Discharge Diagnosis: 1. Acute gastroenteritis 2. Electrolyte disturbances 3. Acute dehydration 4. Chronic kidney disease stage IV 5. Urinary tract infection, likely incidental/asymptomatic Patient was admitted due to intractable vomiting and diarrhea for several days. There was initial concern for sepsis but sepsis was ultimately ruled out as overall presentation more consistent with mild volume depletion. Patient had mild hypokalemia and hypomagnesemia and received potassium and magnesium replacement. Her GI PCR panel was negative including C difficile assay. A CT scan from the ER showed possible obstruction though clinically she was having diarrhea and findings more consistent with pseudo obstruction. Renal function was stable relative to baseline with stage IV CKD. Patient was provided IV hydration, antibiotics, nausea control and electrolyte replacement. She is tolerating diet prior to discharge. In addition urine culture growing Gram- negative bacilli although this is likely incidental and not the cause of her GI symptoms. Status at Discharge Cognitive/behavioral status at discharge: oriented Functional status at discharge: independent ambulation Overall status at discharge: patient is progressing back to baseline Exam Vital Signs (past 8 hours): - 07/01/21 05:30 07/01/21 06:00 07/01/21 06:30 Pulse Rate 94 H 89 90 Respiratory Rate 26 H 20 20 Blood Pressure Pulse Oximetry 07/01/21 07:00 07/01/21 07:30 07/01/21 08:00 Pulse Rate 92 H 109 H 87 Respiratory Rate 34 H 27 H 20 Blood Pressure Pulse Oximetry 07/01/21 08:30 07/01/21 08:41 07/01/21 09:00 Pulse Rate 86 101 H 100 H Respiratory Rate 21 24 25 H Blood Pressure 139/65 Pulse Oximetry 95 07/01/21 09:53 Pulse Rate 98 H Respiratory Rate Blood Pressure 139/65 Pulse Oximetry Oxygen Delivery Method Room Air Narrative Exam Narrative: General: Alert, NAD Lungs: Clear Abdomen: Soft, nontender Extremities: No edema Neurological: Well oriented, speech and affect normal Objective Labs Result Diagrams: 07/01/21 04:36 07/01/21 04:36 Labs: Laboratory Results - last 24 hr 06/30/21 06/30/21 06/30/21 17:17 17:40 17:40 WBC 14.4 H RBC 3.40 L Hgb 12.0 Hct 34.9 L MCV 102.9 H MCH 35.4 H MCHC 34.4 RDW 14.1 Plt Count 135 L Neut % (Auto) 80.1 H Lymph % (Auto) 14.6 L [place] % (Auto) 4.8 Eos % (Auto) 0.1 L Baso % (Auto) 0.4 Neut # (Auto) 10221 H Lymph # (Auto) 2100 [place] # (Auto) 700 Eos # (Auto) 0 Baso # (Auto) 100 ESR PT INR Sodium 130 L Potassium 3.1 L Chloride 102 Carbon Dioxide 23 BUN 14 Creatinine 1.71 H Estimated GFR 29.0 L BUN/Creatinine Ratio 8.2 Glucose 119 H Lactate Calcium 8.6 Phosphorus Magnesium Total Bilirubin 1.1 AST 37 H ALT 20 Alkaline Phosphatase 54 Troponin I 0.029 C-Reactive Protein NT-Pro-B Natriuret Pep Total Protein 6.4 Albumin 3.6 Globulin 2.8 Albumin/Globulin Ratio 1.3 Lipase 99 Procalcitonin Urine Color Urine Appearance Urine pH Ur Specific [place] Urine Protein Urine Glucose (UA) Urine Ketones Urine Occult Blood Urine Nitrate Urine Bilirubin Urine Urobilinogen Ur Leukocyte Esterase Urine RBC Urine WBC Ur Squamous Epith Cells Urine Bacteria Ur Culture Indicated? Micro UA Comment Stl C. cayetanensis PCR Stool Rotavirus (PCR) Stool Adenovirus (PCR) Stool Astrovirus (PCR) Stool Cryptosporidium PCR Stl E.coli Shiga Tox PCR St Sh/Enteroin Ecoli PCR Stool E coli O157 PCR Stl Enterotoxigenic E PCR Stool EPEC (PCR) Stl E. histolytica PCR Stool Giardia Lamblia PCR Stool Sapovirus (PCR) Stl P. shigelloides PCR St Y.enterocolitica PCR Stool Vibrio (PCR) Stl Vibrio cholerae PCR Stl Enteroaggr Ecoli PCR Stl Norovirus GI/GII PCR Campylobacter (PCR) C. difficile Tox (PCR) SARS-CoV-2 (PCR) Negative Salmonella (PCR) 06/30/21 06/30/21 06/30/21 17:40 17:40 17:40 WBC RBC Hgb Hct MCV MCH MCHC RDW Plt Count Neut % (Auto) Lymph % (Auto) [place] % (Auto) Eos % (Auto) Baso % (Auto) Neut # (Auto) Lymph # (Auto) [place] # (Auto) Eos # (Auto) Baso # (Auto) ESR PT INR Sodium Potassium Chloride Carbon Dioxide BUN Creatinine Estimated GFR BUN/Creatinine Ratio Glucose Lactate 1.9 Calcium Phosphorus 1.6 L Magnesium 0.9 L* Total Bilirubin AST ALT Alkaline Phosphatase Troponin I C-Reactive Protein NT-Pro-B Natriuret Pep Total Protein Albumin Globulin Albumin/Globulin Ratio Lipase Procalcitonin Urine Color Urine Appearance Urine pH Ur Specific [place] Urine Protein Urine Glucose (UA) Urine Ketones Urine Occult Blood Urine Nitrate Urine Bilirubin Urine Urobilinogen Ur Leukocyte Esterase Urine RBC Urine WBC Ur Squamous Epith Cells Urine Bacteria Ur Culture Indicated? Micro UA Comment Stl C. cayetanensis PCR Stool Rotavirus (PCR) Stool Adenovirus (PCR) Stool Astrovirus (PCR) Stool Cryptosporidium PCR Stl E.coli Shiga Tox PCR St Sh/Enteroin Ecoli PCR Stool E coli O157 PCR Stl Enterotoxigenic E PCR Stool EPEC (PCR) Stl E. histolytica PCR Stool Giardia Lamblia PCR Stool Sapovirus (PCR) Stl P. shigelloides PCR St Y.enterocolitica PCR Stool Vibrio (PCR) Stl Vibrio cholerae PCR Stl Enteroaggr Ecoli PCR Stl Norovirus GI/GII PCR Campylobacter (PCR) C. difficile Tox (PCR) SARS-CoV-2 (PCR) Salmonella (PCR) 06/30/21 06/30/21 06/30/21 17:40 19:20 20:40 WBC RBC Hgb Hct MCV MCH MCHC RDW Plt Count Neut % (Auto) Lymph % (Auto) [place] % (Auto) Eos % (Auto) Baso % (Auto) Neut # (Auto) Lymph # (Auto) [place] # (Auto) Eos # (Auto) Baso # (Auto) ESR PT INR Sodium Potassium Chloride Carbon Dioxide BUN Creatinine Estimated GFR BUN/Creatinine Ratio Glucose Lactate Calcium Phosphorus Magnesium Total Bilirubin AST ALT Alkaline Phosphatase Troponin I C-Reactive Protein NT-Pro-B Natriuret Pep Total Protein Albumin Globulin Albumin/Globulin Ratio Lipase Procalcitonin 0.65 H Urine Color Urine Appearance Urine pH Ur Specific [place] Urine Protein Urine Glucose (UA) Urine Ketones Urine Occult Blood Urine Nitrate Urine Bilirubin Urine Urobilinogen Ur Leukocyte Esterase Urine RBC Urine WBC Ur Squamous Epith Cells Urine Bacteria Ur Culture Indicated? Micro UA Comment Stl C. cayetanensis PCR Stool Rotavirus (PCR) Stool Adenovirus (PCR) Stool Astrovirus (PCR) Stool Cryptosporidium PCR Stl E.coli Shiga Tox PCR St Sh/Enteroin Ecoli PCR Stool E coli O157 PCR Stl Enterotoxigenic E PCR Stool EPEC (PCR) Stl E. histolytica PCR Stool Giardia Lamblia PCR Stool Sapovirus (PCR) Stl P. shigelloides PCR St Y.enterocolitica PCR Stool Vibrio (PCR) Stl Vibrio cholerae PCR Stl Enteroaggr Ecoli PCR Stl Norovirus GI/GII PCR Campylobacter (PCR) C. difficile Tox (PCR) Cancelled SARS-CoV-2 (PCR) Negative Salmonella (PCR) 06/30/21 06/30/21 07/01/21 20:40 22:45 04:36 WBC 8.8 RBC 3.08 L Hgb 11.1 L Hct 31.9 L MCV 103.4 H MCH 35.9 H MCHC 34.7 RDW 14.2 Plt Count 101 L Neut % (Auto) 74.6 Lymph % (Auto) 17.4 L [place] % (Auto) 7.3 Eos % (Auto) 0.4 L Baso % (Auto) 0.3 Neut # (Auto) 6600 Lymph # (Auto) 1500 [place] # (Auto) 600 Eos # (Auto) 0 Baso # (Auto) 0 ESR PT INR Sodium Potassium Chloride Carbon Dioxide BUN Creatinine Estimated GFR BUN/Creatinine Ratio Glucose Lactate Calcium Phosphorus Magnesium Total Bilirubin AST ALT Alkaline Phosphatase Troponin I C-Reactive Protein NT-Pro-B Natriuret Pep Total Protein Albumin Globulin Albumin/Globulin Ratio Lipase Procalcitonin Urine Color Yellow Urine Appearance Sl cloudy Urine pH 5.0 Ur Specific [place] 1.020 Urine Protein Trace H Urine Glucose (UA) Negative Urine Ketones Trace H Urine Occult Blood 1+ H Urine Nitrate Negative Urine Bilirubin Negative Urine Urobilinogen 0.2 Ur Leukocyte Esterase Trace H Urine RBC None seen Urine WBC 10-30/hpf H Ur Squamous Epith Cells 0-1 /hpf Urine Bacteria Many (>30) H Ur Culture Indicated? Culture not indicate Micro UA Comment * Stl C. cayetanensis PCR Not detected Stool Rotavirus (PCR) Not detected Stool Adenovirus (PCR) Not detected Stool Astrovirus (PCR) Not detected Stool Cryptosporidium PCR Not detected Stl E.coli Shiga Tox PCR Not detected St Sh/Enteroin Ecoli PCR Not detected Stool E coli O157 PCR Not Reportable Stl Enterotoxigenic E PCR Not detected Stool EPEC (PCR) Not detected Stl E. histolytica PCR Not detected Stool Giardia Lamblia PCR Not detected Stool Sapovirus (PCR) Not detected Stl P. shigelloides PCR Not detected St Y.enterocolitica PCR Not detected Stool Vibrio (PCR) Not detected Stl Vibrio cholerae PCR Not detected Stl Enteroaggr Ecoli PCR Not detected Stl Norovirus GI/GII PCR Not detected Campylobacter (PCR) Not detected C. difficile Tox (PCR) Not detected SARS-CoV-2 (PCR) Salmonella (PCR) Not detected 07/01/21 07/01/21 07/01/21 04:36 04:36 04:36 WBC RBC Hgb Hct MCV MCH MCHC RDW Plt Count Neut % (Auto) Lymph % (Auto) [place] % (Auto) Eos % (Auto) Baso % (Auto) Neut # (Auto) Lymph # (Auto) [place] # (Auto) Eos # (Auto) Baso # (Auto) ESR 17 PT 13.5 H INR 1.2 Sodium 132 L Potassium 3.2 L Chloride 107 Carbon Dioxide 24 BUN 13 Creatinine 1.67 H Estimated GFR 29.8 L BUN/Creatinine Ratio 7.8 Glucose 106 Lactate Calcium 7.9 L Phosphorus Magnesium 1.5 L Total Bilirubin 1.0 AST 36 ALT 18 Alkaline Phosphatase 46 Troponin I C-Reactive Protein NT-Pro-B Natriuret Pep Total Protein 5.5 L Albumin 2.9 L Globulin 2.6 Albumin/Globulin Ratio 1.1 Lipase Procalcitonin Urine Color Urine Appearance Urine pH Ur Specific [place] Urine Protein Urine Glucose (UA) Urine Ketones Urine Occult Blood Urine Nitrate Urine Bilirubin Urine Urobilinogen Ur Leukocyte Esterase Urine RBC Urine WBC Ur Squamous Epith Cells Urine Bacteria Ur Culture Indicated? Micro UA Comment Stl C. cayetanensis PCR Stool Rotavirus (PCR) Stool Adenovirus (PCR) Stool Astrovirus (PCR) Stool Cryptosporidium PCR Stl E.coli Shiga Tox PCR St Sh/Enteroin Ecoli PCR Stool E coli O157 PCR Stl Enterotoxigenic E PCR Stool EPEC (PCR) Stl E. histolytica PCR Stool Giardia Lamblia PCR Stool Sapovirus (PCR) Stl P. shigelloides PCR St Y.enterocolitica PCR Stool Vibrio (PCR) Stl Vibrio cholerae PCR Stl Enteroaggr Ecoli PCR Stl Norovirus GI/GII PCR Campylobacter (PCR) C. difficile Tox (PCR) SARS-CoV-2 (PCR) Salmonella (PCR) 07/01/21 04:36 WBC RBC Hgb Hct MCV MCH MCHC RDW Plt Count Neut % (Auto) Lymph % (Auto) [place] % (Auto) Eos % (Auto) Baso % (Auto) Neut # (Auto) Lymph # (Auto) [place] # (Auto) Eos # (Auto) Baso # (Auto) ESR PT INR Sodium Potassium Chloride Carbon Dioxide BUN Creatinine Estimated GFR BUN/Creatinine Ratio Glucose Lactate Calcium Phosphorus Magnesium Total Bilirubin AST ALT Alkaline Phosphatase Troponin I C-Reactive Protein 3.8 H NT-Pro-B Natriuret Pep 2480 H Total Protein Albumin Globulin Albumin/Globulin Ratio Lipase Procalcitonin Urine Color Urine Appearance Urine pH Ur Specific [place] Urine Protein Urine Glucose (UA) Urine Ketones Urine Occult Blood Urine Nitrate Urine Bilirubin Urine Urobilinogen Ur Leukocyte Esterase Urine RBC Urine WBC Ur Squamous Epith Cells Urine Bacteria Ur Culture Indicated? Micro UA Comment Stl C. cayetanensis PCR Stool Rotavirus (PCR) Stool Adenovirus (PCR) Stool Astrovirus (PCR) Stool Cryptosporidium PCR Stl E.coli Shiga Tox PCR St Sh/Enteroin Ecoli PCR Stool E coli O157 PCR Stl Enterotoxigenic E PCR Stool EPEC (PCR) Stl E. histolytica PCR Stool Giardia Lamblia PCR Stool Sapovirus (PCR) Stl P. shigelloides PCR St Y.enterocolitica PCR Stool Vibrio (PCR) Stl Vibrio cholerae PCR Stl Enteroaggr Ecoli PCR Stl Norovirus GI/GII PCR Campylobacter (PCR) C. difficile Tox (PCR) SARS-CoV-2 (PCR) Salmonella (PCR) [facility] Medical History CKD stage 4 secondary to hypertension Depression with anxiety Essential hypertension History of renal calculi History of septic shock Renal disease Surgical History (Updated 06/30/21 @ 22:18 by KANNAN Ortega) History of bilateral hip replacements History of cervical spinal arthrodesis History of cholecystectomy History of gastric bypass History of hysterectomy History of laminectomy Family History (Updated 06/30/21 @ 22:20 by KANNAN Ortega) Mother Asthma Father Heart disease Heart attack Social History Smoking Status: Never smoker Discharge Plan Discharge Plan Patient Disposition: Home Provider Discharge Comment: You were treated for acute gastroenteritis, UTI and electrolytes disturbance. Continue taking Pedialite until you are feeling better. Finish prescribed antibiotic. Discharge orders & Medications Prescriptions: New ciprofloxacin HCl [Cipro] 250 mg tablet 250 mg PO BID 2 Days Qty: 4 0RF ondansetron HCl 4 mg tablet 4 mg PO Q6H PRN (Reason: nausea and vomiting) Qty: 14 0RF Continued citalopram 40 MG tablet 40 mg PO QDAY Qty: 90 3RF acetaminophen 325 mg Tablet 650 mg PO Q6H PRN (Reason: Pain (Scale Score 1-3)) 0RF carvedilol 6.25 mg tablet See Rx Instructions .ROUTE .COMPLEX 0RF Rx Instructions: take two 6.25 mg tabs q am take one 6.25 mg tab q pm loperamide 2 mg Capsule 8 mg PO BID 0RF trazodone 50 mg tablet 100 mg PO QPM 0RF Excedrin Tension Headache 500-65 mg Tablet 2 tab PO Q6H PRN (Reason: Headache) 0RF diphenoxylate-atropine [Lomotil] 2.5-0.025 mg Tablet 1 tab PO DAILY PRN (Reason: Pain (Scale Score 1-3)) 0RF hydrocodone-acetaminophen 10-325 mg tablet 1 tab PO PRN PRN (Reason: pain) 0RF omeprazole 40 mg capsule,delayed release(DR/EC) 4 mg PO 3-4XD PRN (Reason: Vomiting) 0RF omeprazole 40 mg Capsule,Delayed Release(Dr/Ec) 40 mg PO DAILY 0RF potassium citrate 10 mEq (1,080 mg) tablet extended release 10 meq PO DAILY 0RF calcitriol 0.5 mcg capsule 0.5 mcg PO QAM 0RF triamcinolone acetonide [Nasacort] 55 mcg Aerosol,[place] 2 spray INTRANASAL PRN PRN (Reason: Allergy Symptoms) 0RF Rx Instructions: administer into each nostril hydrochlorothiazide 12.5 mg capsule 12.5 mg PO DAILY 0RF vitamin B complex Tablet 1 tab PO DAILY 0RF Rx Instructions: 500 mcg Follow up/Referrals: Erin Black MD [Primary Care Provider] - Discharge Health Status Multidrug resistant organism: No MDRO Diet/Activity/Treatments Diet: Diet as Tolerated Discharge Data Primary Care Provider: Erin Black Attending Provider: Douglas Wade
[2021-07-01] MEDS: LOPERAMIDE 2 MG CAPSULE 4 MG PO (17:53)
[2021-07-01] MEDS: TRAZODONE 50 MG TABLET 100 MG PO (21:41)
[2021-07-02] MEDS: LOPERAMIDE 2 MG CAPSULE 4 MG PO ×3 (01:52→10:19)
[2021-07-02 02:00] VITALS: BP 143/76; PULSE 100; RESP 18; TEMP 36.7; O2SAT 98
[2021-07-02] MEDS: LORazepam 2 MG/ML INJ 0.5 MG IV (02:44)
[2021-07-02] MEDS: HYDROCODONE/ACET 10/325 TABLET 1 TAB PO ×2 (02:45→10:20)
[2021-07-02] MEDS: ONDANSETRON 4 MG ODT SL (04:30)
[2021-07-02 04:33] LABS: Acinetobacter baumannii Not Detected (Not Detect); Enterobacteriaceae species Not Detected (Not Detect); Enterococcus species Not Detected (Not Detect); Listeria monocytogenes Not Detected (Not Detect); Staphylococcus species Not Detected (Not Detect); Streptococcus agalactiae (Gr B Not Detected (Not Detect); Streptococcus pneumonia Not Detected (Not Detect); Streptococcus pyogenes (Gr A) Not Detected (Not Detect); Streptococcus species Not Detected (Not Detect)
[2021-07-02 04:34] LABS: Candida albicans Not Detected (Not Detect); Candida glabrata Not Detected (Not Detect); Candida krusei Not Detected (Not Detect); Candida parapsilosis Not Detected (Not Detect); Candida tropicalis Not Detected (Not Detect); E. coli Not Detected (Not Detect); Enterobacter cloacae complex Not Detected (Not Detect); Haemophilus influenzae Not Detected (Not Detect); Neisseria meningitidis Not Detected (Not Detect); Proteus species Not Detected (Not Detect); Pseudomonas aeruginosa Not Detected (Not Detect); Serratia marcescens Not Detected (Not Detect)
[2021-07-02 05:32] LABS: Add Manual Diff / Slide Review NO; Basophils Absolute Auto 0 /uL (0-100); Basophils Percent Auto 0.4 % (0-2); Eosinophils Absolute Auto 300 /uL (0-450); Eosinophils Percent Auto 3.4 % (2-4); Hematocrit 33.1 % (36-46); Hemoglobin 11.3 g/dL (12.0-16.0); Lymphocytes Absolute Auto 1900 /uL (1100-4500); Lymphocytes Percent Auto 24.5 % (25-40); Mean Corpuscular HGB Conc 34.2 % (30-36); Mean Corpuscular Hemoglobin 35.7 PG (26-34); Mean Corpuscular Volume 104.5 fL (80-100); Monocytes Absolute Auto 500 /uL (0-900); Neutrophils Absolute Auto 4900 /uL (1500-7000); Neutrophils Percent Auto 64.7 % (50-75); Platelet Count 110 X10^3/uL (150-400); Red Blood Cell Count 3.17 X10^6/uL (4.0-5.2); Red Cell Distribution Width 14.6 % (11.6-14.8); White Blood Cell Count 7.6 X10^3/uL (4.5-11.0)
[2021-07-02 05:41] LABS: Alanine Aminotransferase 20 IU/L (<35); Albumin Globulin Ratio 1.1 (1.0-2.8); Alkaline Phosphatase 41 U/L (38-126); Aspartate Aminotransferase 37 IU/L (14-36); BUN Creatinine Ratio 7.5 (6-22); Bilirubin Total 0.9 mg/dL (0.2-1.3); Blood Urea Nitrogen 11 mg/dL (7-17); Calcium 7.8 mg/dL (8.4-10.2); Carbon Dioxide 22 mmol/L (22-32); Chloride 111 mmol/L (98-107); Estimated Glomerular Filt Rate 34.6 mL/min (>60); Globulin 2.8 g/dL (1.7-4.1); Glucose 89 mg/dL (80-110); HEMOLYSIS 43 (0-50); Potassium 3.4 mmol/L (3.4-5.1); Sodium 134 mmol/L (137-145); Total Protein 5.8 g/dL (6.3-8.2)
[2021-07-02 06:00] VITALS: BP 144/78; PULSE 99; RESP 16; TEMP 36.6; O2SAT 98
[2021-07-02] MEDS: PANTOPRAZOLE DR 40 MG TABLET PO (06:04)
--- NOTE | 2021-07-02 06:58 | PC.NURSE ---
Admit Note- Patient arrived to room via wheelchair at 2210. Patient alert and oriented and able to make needs known to staff. admit questions done, medications reviewed, physical assessment done, and robert check completed. allyven dressing placed to draining wound on right lower nelson. Multiple bruises noted on bilateral arms and legs. 2+ edema noted to BLE and upper arms. Patient oriented to bed and bed controls, room, lights, phone, menu, bathroom, and call fregoso/TV remote. Safety measures in place. Patient agrees to call for assistance. bed alarm activated. call freogso and phone within reach. will continue to monitor.
[2021-07-02 07:35] VITALS: BP 140/81; PULSE 101; RESP 16; TEMP 36.9; O2SAT 95
[2021-07-02] MEDS: DIPHENOXYLATE/ATROP 2.5/0.025 TABLET 2 EACH PO (09:06)
[2021-07-02] MEDS: carvediloL 3.125 MG TABLET 6.25 MG PO (09:06)
[2021-07-02] MEDS: CIPROFLOXACIN 250 MG TABLET PO (09:06)
[2021-07-02] MEDS: CITALOPRAM 10 MG TABLET 40 MG PO (09:06)
[2021-07-02] MEDS: ENOXAPARIN 30 MG/0.3 ML SYRINGE SUBCUT (09:06)
--- NOTE | 2021-07-02 09:17 | CM.DANOTE ---
DCP: Case received, EMR reviewed and met with patient. Introduced self and role. Was able to obtain information regarding patient's baseline activity status at home prior to hospitalization, as well as her current living situation. DCP assessment completed with information currently available. Patient is a 75 year old female who admitted on 06-30, to the care of the hospitalist team. PCP: Dr. Black. Payer: confirmed: Medicare/[facility]. Patient came to the hospital via ambulance, was airlifted from [place]. Patient was noted to have weakness, as well as well as increased abdominal pain and loose stools. Patient had originally came to the ER to have her labs checked. Patient was noted to have possible early partial small-bowel obstruction, bilateral nephrolithiasis. She was admitted for sepsis due to diarrhea resulting in hyponatremia, hypokalemia, and hypomagnesia. Patient has history of CKD stage 4, as well as renal stones. Met with patient in her room. She is alert and oriented, pleasant. She was sitting on the edge of the bed. She resides in [place] on [facility] with her daughter, Cheryl Couch. She uses a FWW at her baseline, and has a solder sprayer at home, for her daughter works. She indicated that her caregiver assists with cooking and cleaning. P: Patient is to be discharged home today, and will be picked up at approximately 10:30, by her daughter, to get [place] 11:00 ferry. She will be getting a prior boarding pass. Gissell Hinkle RN/Motor Boss Discharge Planning/Care Management CM Discharge Assessment Start: 07/02/21 09:15 Freq: Status: Active Protocol: Document 07/02/21 09:15 (Rec: 07/02/21 09:17 [id number]) Discharge Planning Assessment Assigned Fireworks Inspector Gissell Hinkle RN/Motor Boss Advance Directives? Yes Advance Directives on File No History Provided By Patient,Medical Record Prior Living Arrangements House Household Members children Type of transporation used prior to Relies on Others admit Independent with ADL's Yes Is patient alert and oriented? Yes Needs Assistance With Meal Prep,Home Chores / Shopping Caregiver for Another No DME Already Rented / Owned FWW / Walker Barriers to Discharge No Discharge Plan Home Transportation Arrangement Daughter Referrals Initiated None needed Whiteboard Updated in Patient Room with Yes name and ext. # of Fireworks Inspector Review Status In Process Next Review Type Continued Stay Review
--- NOTE | 2021-07-02 10:43 | PC.NURSE ---
Assumed care of pt at 0700. Resting in bed during hand-off. Denies pain. Reports chronic loose stools, using BSC for toileting. Steady on feet. SBA. Discharge to home order by provider. Pt verbalized understanding of all d/c instructions. Pt states she will call PCP to schedule f/up. Escorted off unit via w/c by marine photographer to private vehicle. Pt left in stable condition with all personal belongings.
[2021-07-03 10:08] LABS: B. henselae IgG Negative titer (Neg:<1:320); B. henselae IgM Negative titer (Neg:<1:100); B. quintana IgG Negative titer (Neg:<1:320); B. quintana IgM Negative titer (Neg:<1:100)
== END 2021-07-02 10:30 | disposition home or self-care (01) ==
LOC: ED 18:40 → AC 18:41
PROVIDERS: Nurse Practitioner Family; Admitting Provider Internal Medicine; Emergency Provider Emergency Medicine; Family Provider Family Medicine; PCP Student in an Organized Health Care Education/Training Program; Referring Provider Emergency Medicine; Visit Provider Internal Medicine
DX: K52.9 Noninfective gastroenteritis and colitis, unspecified (principal); I12.9 Hypertensive chronic kidney disease with stage 1 through stage 4 chronic kidney disease, or unspecified chronic kidney disease; N18.4 Chronic kidney disease, stage 4 (severe); F32.9 Major depressive disorder, single episode, unspecified; F41.9 Anxiety disorder, unspecified; K21.9 Gastro-esophageal reflux disease without esophagitis; E86.0 Dehydration; N39.0 Urinary tract infection, site not specified; B96.1 Klebsiella pneumoniae [K. pneumoniae] as the cause of diseases classified elsewhere; Z20.822 Contact with and (suspected) exposure to COVID-19
CPT/HCPCS: 36415; 74176; 80053; 81001; 83605; 83690; 83735; 83880; 84100; 84145; 84484; 85025; 85610; 85651; 86140; 86611; 87040; 87077; 87086; 87150; 87186; 87205; 87507; 87635; 93005; 93010; 96361; 96365; 96366; 96367; 96368; 96372; 96375; 96376; 99284; 99285; C9803; G0378; J1650; J2060; J2405; J2543; J3475

== ENCOUNTER → 2021-12-16 09:29 | Outpatient (CLI) | payer MEDICARE, OTHER, SELFPAY ==
[2021-07-01 22:54] VITALS: BMI 26.9
--- NOTE | 2021-12-16 09:38 | DI.CT.S_ITS ---
PROCEDURE: CT KIDNEY URETER BLADDER (KUB) INDICATIONS: Acute Kidney failure TECHNIQUE: Axial sections were acquired from the lung bases to the pubic symphysis. Coronal and sagittal reformats were performed. For radiation dose reduction, the following was used: automated exposure control, adjustment of mA and/or kV according to patient size. COMPARISON: [facility], CT, CT ABDOMEN PELVIS WO CON, 06/30/2021, 17:20. FINDINGS: Image quality: Excellent. Lung bases: Unremarkable. Visualized portions of the bilateral breast implants are intact. Heart: No significant findings. URINARY: Right Kidney: Normal size. There is a nonobstructing 3 mm calculus in the lower pole. No perinephric fat stranding. No hydronephrosis. Right Ureter: No hydroureter or ureterolithiasis where visualized. The distal ureter is obscured by streak artifact from the bilateral hip arthroplasties. Left Kidney: There is atrophy of the left renal cortex. There is severe left hydronephrosis, which is new when compared with the study dated June 30, 2021. No perinephric fat stranding. Low-density cortical cysts are noted. There is a nonobstructing 9 mm calculus in the midpole of the left kidney and a nonobstructing 3 mm calculus in the lower pole. The previously visualized 6 mm calculus within the upper pole of the left kidney is no longer visualized. Left Ureter: There is marked left hydroureter. 2 calculi are visualized within the mid left ureter, the largest of which measures 7 mm in diameter and the smaller of which measures 6 mm in diameter. These demonstrate approximately 1000 Hounsfield units in density. The downstream ureter is decompressed where visualized; however the distal ureter is obscured by metallic streak artifact. Bladder: The bladder is poorly characterized given streak artifact. ABDOMEN: Liver: Unremarkable. Gallbladder: Not visualized and likely surgically absent. Biliary ducts: Unremarkable. Pancreas: Unremarkable. Spleen: Unremarkable. Adrenal Glands: Unremarkable. Stomach and Bowel: Stomach, small bowel loops, and colon are unremarkable. Peritoneum: No abnormal intraperitoneal fluid. No free air. Ventral Wall: No hernia. Abdominal Nodes: No enlarged retroperitoneal or mesenteric lymph nodes. Vessels: Aorta and inferior vena cava are normal in size. PELVIS: Pelvic Organs: Unremarkable. Pelvic Nodes: Unremarkable. Miscellaneous: No inguinal hernias are seen. Bones: Unremarkable. S shaped scoliosis is redemonstrated throughout the thoracolumbar spine. IMPRESSION: 1. Left ureterolithiasis with severe left hydroureter and hydronephrosis. The largest left calculus measures 7 mm in diameter and demonstrates approximately 1000 Hounsfield units in density. 2. Nonobstructive bilateral nephrolithiasis. Dictated by: Shivani Prince M.D. on 12/16/2021 at 10:39 Approved by: Shivani Prince M.D. on 12/16/2021 at 10:46
== END ==
PROVIDERS: Family Provider Family Medicine; PCP Student in an Organized Health Care Education/Training Program; Referring Provider Specialist; Visit Provider Specialist
DX: N13.2 Hydronephrosis with renal and ureteral calculous obstruction (principal); N26.1 Atrophy of kidney (terminal); N17.9 Acute kidney failure, unspecified
CPT/HCPCS: 74176

== ENCOUNTER 2021-12-16 14:51 | Day surgery (SDC) | payer MEDICARE, OTHER, SELFPAY ==
[2021-07-01 22:54] VITALS: BMI 26.9
[2021-12-16] VITALS (7 sets, daily range): BP systolic 130–153; BP diastolic 61–88; PULSE 98–122; RESP 14–16; TEMP 36.3–37.1; O2SAT 98–100; BMI 22.9
[2021-12-16] MEDS: LACTATED RINGERS 1,000 ML 42 ML IV (15:30)
[2021-12-16] MEDS: fentaNYL 100 MCG/2 ML INJ 50 MCG IV (16:53)
--- NOTE | 2021-12-16 17:34 | P.HP_ITS ---
History of Present Illness History of Present Illness Date Patient Seen: 12/16/21 Time Patient Seen: 16:15 Chief complaint: SDC Narrative: Patient is a 76-year-old female with longstanding multiple medical comorbidities including stage IV CKD, recurrent nephrolithiasis, and chronic/recurrent gastrointestinal issues with history of gastric bypass. Approximately 1 week ago she was seen by her primary electrical systems engineer, Dr. Black, who noted an acute interval rise in creatinine and other laboratories concerning for for acute on chronic renal failure. Renal ultrasound demonstrated new left hydronephrosis. No stones were visualized or commented on within the ureter. Patient had known history of bilateral nephrolithiasis. Patient is seen today urgently after obtaining CT KUB earlier this morning demonstrating interval, since CT KUB 06/30/2021, 2 obstructing left mid to distal ureteral calculi measuring 6 mm and 7 mm. Unchanged is a nonobstructing left lower pole renal calculus measuring 8 mm and a 3 mm right lower pole calculus that is nonobstr ucting measuring 3 mm. She is therefore admitted is outpatient today for urgent relief of left ureteral obstruction. She has a follow-up visit with her primary electrical systems engineer in the next 2-3 days to obtain clinical reassessment and laboratories. The patient unfortunately, is not a good historian. Directed questioning to obtain onset and related symptoms of left renal colic were unclear. Patient History Medical History (Updated 12/16/21 @ 17:42 by Anh Roman MD) Acute kidney injury Bilateral nephrolithiasis CKD stage 4 secondary to hypertension Depression with anxiety Essential hypertension History of renal calculi History of septic shock Left ureteral calculus Renal disease Surgical History (Updated 06/30/21 @ 22:18 by KANNAN Ortega) History of bilateral hip replacements History of cervical spinal arthrodesis History of cholecystectomy History of gastric bypass History of hysterectomy History of laminectomy Family & Social History Family History (Updated 06/30/21 @ 22:20 by KANNAN Ortega) Mother Asthma Father Heart disease Heart attack Social History: household members children Tobacco & Substance use: Smoking Status Never smoker alcohol intake never Substance Use Type does not use Meds Home Medications and Allergies Home Medications Medication Instructions Recorded Confirmed Type citalopram 40 mg tablet 40 mg PO QDAY #90 tabs 07/16/16 06/30/21 Rx acetaminophen 325 mg tablet 650 mg PO Q6H PRN Pain (Scale 06/30/21 06/30/21 History Score 1-3) acetaminophen-caffeine 500 mg-65 2 tab PO Q6H PRN Headache 06/30/21 06/30/21 History mg tablet (Excedrin Tension Headache) calcitriol 0.5 mcg capsule 0.5 mcg PO QAM 06/30/21 06/30/21 History carvedilol 6.25 mg tablet See Rx Instructions .Route .COMPLEX 06/30/21 06/30/21 History diphenoxylate-atropine 2.5 1 tab PO DAILY PRN Pain (Scale 06/30/21 06/30/21 History mg-0.025 mg tablet (Lomotil) Score 1-3) hydrochlorothiazide 12.5 mg capsule 12.5 mg PO DAILY 06/30/21 06/30/21 History hydrocodone 10 mg-acetaminophen 1 tab PO PRN PRN pain 06/30/21 06/30/21 History 325 mg tablet loperamide 2 mg capsule 8 mg PO BID 06/30/21 07/01/21 History omeprazole 40 mg capsule,delayed 4 mg PO 3-4XD PRN Vomiting 06/30/21 06/30/21 History release omeprazole 40 mg capsule,delayed 40 mg PO DAILY 06/30/21 06/30/21 History release potassium citrate 10 mEq (1,080 10 meq PO DAILY 06/30/21 06/30/21 History mg) tablet,extended release trazodone 50 mg tablet 100 mg PO QPM 06/30/21 06/30/21 History triamcinolone acetonide 55 mcg 2 spray intranasal PRN PRN Allergy 06/30/21 06/30/21 History nasal spray aerosol (Nasacort) Symptoms vitamin B complex 1 tab PO DAILY 06/30/21 06/30/21 History ondansetron HCl 4 mg tablet 4 mg PO Q6H PRN nausea and 07/01/21 Rx vomiting #14 tabs Allergies Allergy/AdvReac Type Severity Reaction Status Date / Time pentazocine [From Nicki] Allergy Verified 06/30/21 18:48 Review of Systems Review of Systems ROS: Yes All systems reviewed with the patient and are negative except as otherwise documented Exam Vital Signs (past 8 hours): - 12/16/21 15:19 Temperature 98.4 F Pulse Rate 110 H Respiratory Rate 16 Blood Pressure 130/78 Pulse Oximetry 100 Oxygen Delivery Method Room Air Oxygen Delivery Method Room Air Narrative Exam Narrative: She is a well-developed, chronically ill-appearing elderly woman skin edges in mild distress. Chest-equal 1 mildly labored expansion bilaterally. No audible wheeze or rale. Heart-normal sinus rhythm. Abdomen-bowel tones are normal and active. She reports tenderness that is generalized in all quadrants without rebound or guarding. No CVA tenderness elicited. Assessment & Plan Assessment and plan (1) Acute kidney injury: Status: Acute (2) CKD stage 4 secondary to hypertension: Status: Acute (3) Left ureteral calculus: Status: Acute Assessment & Plan narrative: Assessment: 1. Acute kidney injury superimposed on stage IV CKD. 2. Obstructing left ureteral calculi x2. 3. Bilateral nephrolithiasis. Plan: 1. Discussion laboratory and imaging findings and informed consent obtained for urgent CYSTOSCOPY/LEFT URETEROSCOPIC LASER LITHOTRIPSY/PLACEMENT LEFT URETERAL STENT. Common side effects, possible complications, perioperative limitations/restrictions, and reasonable expectations of outcomes and recovery were explained. The patient does recall having undergone similar intervention by me many years ago. She had no additional clarifying questions or concerns indicates a desire to proceed. Time Spent With Patient Critical Care time: I spent a total of [] minutes of critical care time on this patient's care today; this time is exclusive of procedural time.
[2021-12-16] MEDS: CEFAZOLIN 2 GM/20 ML SYRINGE IV (19:52)
--- NOTE | 2021-12-16 20:05 | SUR.OPER ---
Lithotomy on padded OR bed, head on pillow, arms secured on padded arm boards at <90 degrees abduction. Legs secured in padded yellow fins stirrups.
[2021-12-16] MEDS: BELLADONNA/OPIUM SUPPOSITORIES 1 EACH PR (20:16)
[2021-12-16] MEDS: IOPAMIDOL 50 ML VIAL INJ (20:31)
--- NOTE | 2021-12-16 20:47 | P.OP_ITS ---
Operative Date/Time/Diagnoses Date of procedure: 12/16/21 Time of procedure: 20:47 Procedure & Clinicians Procedure: 1. Cystoscopy/left retrograde pyelogram. 2. Left ureteroscopy. Same procedure as scheduled: No Indications: A hybrid guidewire could not be negotiated beyond a highly impacted calculus in surrounding bullous edema. Surgeon: Anh Roman Click Yes if Unassisted: Yes Anesthesia Type: General Operative Notes Findings: 1. Urethra-normal position caliber. 2. Bladder-1 to 2+ trabeculation. Normal ureteral orifices bilaterally. Moderate amount amorphous debris lying dependently in the floor the bladder. Bladder urothelium had mild erythema. A urine specimen was obtained for reflex culture. 3. Left ureter normal distal segment. Just above the sacroiliac joint the lead obstructing stone could be seen radiographically. Retrograde pyelogram demonstrated abrupt cutoff just distal to the calculus. Visually, there was severe bullous edema occupying the entire lumen and a hybrid guidewire, both straight and curved tip, could not be negotiated beyond the stone even under direct visualization through the ureteral scope. Closure Type: not applicable Specimen(s): none sent (Urine for reflex culture.) Estimated Blood Loss (mL): 0 Blood products transfused: none Procedure in detail: The patient was positioned supine was administered general anesthesia. She was then repositioned semi lithotomy and the lower abdomen, genitalia, and groin were then prepped and draped in sterile fashion. The 22 Martiniquais panendoscope was then passed lower urinary tract with the findings as described above. A 0.035 hybrid guidewire was then advanced through the working channel of the panendoscope and advanced proximally in the left ureter. It could not be passed beyond the index calculus. The intent at this point given the findings in the urine was to simply get a wire beyond the stone and position a stent. Then await final urine culture and improvement or resolution of acute kidney injury before making secondary operative plan for ureteroscopic laser lithotripsy. Given the circumstances, a 15 Martiniquais, 6 cm plan dilating catheter was positioned across the left ureterovesical junction over the wire that was only had the advanced to the level just distal to the the mid to distal left ureteral calculus. The balloon was inflated to 18 atmospheres and held into position for 5 minutes. After which the balloon was deflated and backloaded off the wire. The guidewire was secured to the surgical drape. The semi rigid ureteral scope was then prepared and was advanced as the urethra and into the left ureteral orifice and then advanced under direct visualization the level of obstruction. The calculus was never actually seen. There was impressive bolus edema occupying the lumen of the ureter. Intraoperative photographs were taken. A retrograde pyelogram was performed at this time and there was no evidence of contrast passing beyond the stone more proximally. Despite numerous attempts with both straight and curved tip hybrid guidewire a successful passage proximally beyond the stone was not possible. Decision was made to abort further attempts with plan to schedule the patient for left percutaneous nephroureteral stent placement. The bladder is then drained completely and all instrumentation was removed. The patient was repositioned supine, was awakened, transferred to [facility] and transported recovery in stable condition. Complications: none Post-operative Condition: stable Disposition: PACU Plan for aftercare: Discharge home
== END 2021-12-16 21:41 | disposition home or self-care (01) ==
PROVIDERS: Family Provider Family Medicine; PCP Student in an Organized Health Care Education/Training Program; Referring Provider Specialist; Visit Provider Specialist
PROC: 0TF78ZZ Fragmentation in Left Ureter, Via Natural or Artificial Opening Endoscopic (ICD-10-PCS; CPT 52353; principal; 2021-12-16 16:45)
DX: N13.2 Hydronephrosis with renal and ureteral calculous obstruction (principal); N17.9 Acute kidney failure, unspecified; I12.9 Hypertensive chronic kidney disease with stage 1 through stage 4 chronic kidney disease, or unspecified chronic kidney disease; N18.4 Chronic kidney disease, stage 4 (severe); I10 Essential (primary) hypertension; Z20.822 Contact with and (suspected) exposure to COVID-19
CPT/HCPCS: 52344; 74176; 76000; 80048; 80076; 82962; 85025; 87086; 87635; C1771; C9803; J0690; J1100; J2405; J2704; J2765; J3010

== ENCOUNTER → 2021-12-27 14:03 | Outpatient (ROUT) | payer MEDICARE, OTHER, SELFPAY ==
[2021-07-01 22:54] VITALS: BMI 26.9
[2021-12-27 14:31] LABS: Add Manual Diff / Slide Review NO; Basophils Absolute Auto 100 /uL (0-100); Basophils Percent Auto 0.7 % (0-2); Eosinophils Absolute Auto 400 /uL (0-450); Hematocrit 26.5 % (36-46); Lymphocytes Absolute Auto 2500 /uL (1100-4500); Lymphocytes Percent Auto 27.2 % (25-40); Mean Corpuscular HGB Conc 33.8 % (30-36); Mean Corpuscular Hemoglobin 33.7 PG (26-34); Mean Corpuscular Volume 99.7 fL (80-100); Monocytes Absolute Auto 800 /uL (0-900); Monocytes Percent Auto 8.9 % (3-14); Neutrophils Absolute Auto 5500 /uL (1500-7000); Neutrophils Percent Auto 59.2 % (50-75); Platelet Count 211 X10^3/uL (150-400); Red Blood Cell Count 2.66 X10^6/uL (4.0-5.2); Red Cell Distribution Width 15.6 % (11.6-14.8); White Blood Cell Count 9.2 X10^3/uL (4.5-11.0)
[2021-12-27 17:04] LABS: Alanine Aminotransferase 26 IU/L (<35); Albumin 3.3 g/dL (3.5-5.0); Albumin Globulin Ratio 1.3 (1.0-2.8); Alkaline Phosphatase 93 U/L (38-126); Aspartate Aminotransferase 35 IU/L (14-36); BUN Creatinine Ratio 13.2 (6-22); Bilirubin Unconjugated 0.8 mg/dL (0.0-1.1); Blood Urea Nitrogen 30 mg/dL (7-17); Calcium 8.2 mg/dL (8.4-10.2); Carbon Dioxide 22 mmol/L (22-32); Chloride 102 mmol/L (98-107); Estimated Glomerular Filt Rate 22 mL/min (>60); Globulin 2.6 g/dL (1.7-4.1); Glucose 85 mg/dL (80-110); HEMOLYSIS < 15 (0-50); Potassium 3.9 mmol/L (3.4-5.1); Sodium 138 mmol/L (137-145); Total Protein 5.9 g/dL (6.3-8.2)
== END ==
PROVIDERS: Specialist; Family Provider Family Medicine; PCP Student in an Organized Health Care Education/Training Program; Visit Provider Emergency Medicine
DX: D64.9 Anemia, unspecified (principal)
CPT/HCPCS: 80048; 80076; 85025

== ENCOUNTER → 2022-01-06 09:00 | Outpatient (CLI) | payer MEDICARE, OTHER, SELFPAY ==
[2021-07-01 22:54] VITALS: BMI 26.9
--- NOTE | 2022-01-06 09:01 | DI.RAD.S_ITS ---
PROCEDURE: XR KUB INDICATIONS: ureter calculus TECHNIQUE: One view of the abdomen acquired. COMPARISON: [facility], CT, CT KIDNEY URETER BLADDER (KUB), 12/16/2021, 10:05. FINDINGS: Surgical changes and devices: None. Bowel: Bowel gas pattern is normal. Soft tissues: There is a left ureteral stent. Probable left distal ureteral stones at the level of the left superior pubic ramus. Visualized solid organ contours appear normal in size. Multiple surgical clips are seen in the right abdomen Bones: No suspicious bony lesions. Moderate scoliosis. Severe degenerative changes in lumbar spine. Bilateral hip arthroplasties. IMPRESSION: Possible residual stones in the distal ureter. Dictated by: Festus Landrum M.D. on 01/06/2022 at 18:22 Approved by: Festus Landrum M.D. on 01/06/2022 at 18:25
== END ==
PROVIDERS: Family Provider Family Medicine; PCP Family Medicine; Referring Provider Specialist; Visit Provider Specialist
DX: N20.1 Calculus of ureter (principal)
CPT/HCPCS: 74018

== ENCOUNTER → 2022-01-07 14:33 | Outpatient (CLI) | payer MEDICARE, OTHER, SELFPAY ==
[2021-07-01 22:54] VITALS: BMI 26.9
--- NOTE | 2022-01-07 | DI.US.S_ITS ---
PROCEDURE: US PERIPH VENOUS LOW EXTREM BI INDICATIONS: SWELLING TECHNIQUE: Real-time imaging, as well as color and pulse Doppler interrogation, were performed of the deep veins of both legs from the inguinal ligament to the popliteal fossa. COMPARISON: None. FINDINGS: Right: The common femoral, femoral and popliteal veins are normally compressible, and free of intraluminal thrombus. Color and pulse Doppler demonstrate normal phasic intravascular flow. There is normal augmentation response to distal compression maneuver. There is a 5.6 x 2.4 x 1.1 cm cyst within the right popliteal fossa. Left: The common femoral, femoral and popliteal veins are normally compressible, and free of intraluminal thrombus. Color and pulse Doppler demonstrate normal phasic intravascular flow. There is normal augmentation response to distal compression maneuver. There is a 2.1 x 2.5 x 2.7 cm cyst within the left popliteal fossa. There is diffuse edema throughout the bilateral lower extremities. IMPRESSION: 1. No deep vein thrombosis of the bilateral lower extremities. 2. Diffuse subcutaneous edema. 3. Bilateral Tracey's cysts. Dictated by: Shivani Prince M.D. on 01/07/2022 at 17:10 Approved by: Shivani Prince M.D. on 01/07/2022 at 17:11
--- NOTE | 2022-01-07 14:34 | DI.CT.S_ITS ---
PROCEDURE: CT KIDNEY URETER BLADDER (KUB) INDICATIONS: kidney stones TECHNIQUE: Axial sections were acquired from the lung bases to the pubic symphysis. Coronal and sagittal reformats were performed. For radiation dose reduction, the following was used: automated exposure control, adjustment of mA and/or kV according to patient size. COMPARISON: [facility], CT, CT KIDNEY URETER BLADDER (KUB), 12/16/2021, 10:05. FINDINGS: Image quality: Excellent. Lung bases: Unremarkable. Heart: Coronary artery disease. Breast implants in place. URINARY: Punctate right lower pole calculus again seen. No hydronephrosis Double-J left ureteral stent in appropriate position. There are punctate left 1-2 mm lower pole calculi. Adjacent to the stent in the left proximal ureter, there is a dense 3-4 mm stone (2/55). Adjacent to this stent in the left mid ureter, there is a dense 7 x 5 x 4 mm stone (2/59, 4/30). At least 2 other 1-2 mm stones are seen adjacent to the stent in the mid ureter (4/31). Decreased, mild persistent left hydronephrosis. Left upper pole cyst. Bladder: No bladder stones within the field of view, much of the bladder is obscured by metallic artifact. ABDOMEN: Liver: Unremarkable. Gallbladder: Absent Biliary ducts: Mildly dilated as before. Pancreas: Unremarkable. Spleen: Unremarkable. Adrenal Glands: Similar thickening. Stomach and Bowel: Stomach, small bowel loops, and colon are unremarkable. Peritoneum: No abnormal intraperitoneal fluid. No free air. Ventral Wall: Anterior abdominal wall hernia repair. Abdominal Nodes: No enlarged retroperitoneal or mesenteric lymph nodes. Vessels: Mild atherosclerotic calcifications. PELVIS: Evaluation is limited by metallic artifact from hip arthroplasties. Pelvic Organs: Unremarkable. Pelvic Nodes: Unremarkable. Miscellaneous: No inguinal hernias are seen. Bones: Bilateral hip arthroplasties. No suspicious osseous lesions. Lumbosacral spondylosis. Levoconvex spinal curvature. IMPRESSION: Decreased stone burden compared to 12/16/2021. Multiple small stone fragments in the left kidney and adjacent to the stent in the left ureter, the largest measuring up to 7 x 5 x 4 mm with a density of over 800 Hounsfield units. Appropriate position of the left double J ureter stent. Mild persistent hydronephrosis. Difficult to evaluate the bladder due to metallic artifact in the pelvis. Dictated by: Buster Kelly M.D. on 01/07/2022 at 15:59 Approved by: Buster Kelly M.D. on 01/07/2022 at 16:13
== END ==
PROVIDERS: Family Provider Family Medicine; PCP Family Medicine; Referring Provider Specialist; Visit Provider Specialist
DX: N17.9 Acute kidney failure, unspecified (principal); N13.2 Hydronephrosis with renal and ureteral calculous obstruction; I25.10 Atherosclerotic heart disease of native coronary artery without angina pectoris; R60.0 Localized edema; M71.22 Synovial cyst of popliteal space [Baker], left knee; M71.21 Synovial cyst of popliteal space [Baker], right knee; N18.4 Chronic kidney disease, stage 4 (severe); I12.9 Hypertensive chronic kidney disease with stage 1 through stage 4 chronic kidney disease, or unspecified chronic kidney disease; Z96.643 Presence of artificial hip joint, bilateral; Z96.0 Presence of urogenital implants
CPT/HCPCS: 74176; 93970; 99215

== ENCOUNTER 2022-01-13 11:26 | Day surgery (SDC) | payer MEDICARE, OTHER, SELFPAY ==
[2021-07-01 22:54] VITALS: BMI 26.9
--- NOTE | 2022-01-13 | DI.RAD.S_ITS ---
PROCEDURE: XR KUB INDICATIONS: Left ureteral calculi TECHNIQUE: One view of the abdomen acquired. COMPARISON: [facility], , XR KUB, 01/06/2022, 9:14. FINDINGS: Surgical changes and devices: Double-J left ureteral stent in good position. Residual disc calcifications adjacent to the stent have resolved. Right upper quadrant suture and bilateral total hip arthroplasty present. Bowel: Bowel gas pattern is normal. Soft tissues: Advanced small vessel atherosclerotic vascular calcification present. Visualized solid organ contours appear normal in size. Bones: No suspicious bony lesions. Convex left lumbar scoliosis unchanged. IMPRESSION: Left double-J ureteral stent in good position. Distal ureteral calcifications appear to have resolved. Approved by: Alessandro Arana M.D. on 01/13/2022 at 12:28
--- NOTE | 2022-01-13 | DI.RAD.S_ITS ---
PROCEDURE: XR KUB INDICATIONS: LEFT KIDNEY STONE TECHNIQUE: One fluoroscopic view of the abdomen acquired. COMPARISON: [facility], , XR KUB, 01/13/2022, 11:58. FINDINGS: A single fluoroscopic image utilized during performance of a urological procedure demonstrates that contrast has been injected into the left collecting system, and that a ureteral stent is being placed. IMPRESSION: Operative fluoroscopic imaging utilized during left ureteral stent placement. Dictated by: Rosendo Olson M.D. on 01/13/2022 at 17:04 Approved by: Rosendo Olson M.D. on 01/13/2022 at 17:05
--- NOTE | 2022-01-13 11:20 | P.OP.PRE_ITS ---
Pre-operative Note COVID-19 Criteria for continued procedure: Expected advancement of disease process, Possibility delay results in more complex future surgery or treatment, Increased loss of function, Deterioration of the patient's condition or overall health, Delay expected to result in less-positive ultimate med/surg outcome and Non- surgical alternatives not available or appropriate per current SOC Interval Note History & Physical reviewed/Exam performed by Physician: Yes Changes to H&P: Yes H&P completed within 30 days and has changed as indicated here:: The patient has undergone interval placement of left percutaneous nephrostomy to for relief high-grade obstruction, and RAYMUNDO due to obstructing left ureteral calculi.
[2022-01-13 12:00] VITALS: BP 159/79; PULSE 89; RESP 25; TEMP 36.6; O2SAT 96
[2022-01-13 12:02] VITALS: BMI 24.9
[2022-01-13 12:57] LABS: COVID19 -Nasal RAPID Negative (Negative)
[2022-01-13] MEDS: ACETAMINOPHEN IV 1,000 MG/100 ML VIAL 400 MG IV (13:14)
[2022-01-13] MEDS: LACTATED RINGERS 1,000 ML 42 ML IV (13:16)
[2022-01-13] MEDS: CEFAZOLIN 2 GM/20 ML SYRINGE IV (13:23)
--- NOTE | 2022-01-13 13:56 | SUR.OPER ---
Lithotomy on padded OR bed, head on pillow, right arm secured on padded arm board at <90 degrees abduction. Left arm padded and tucked. Legs secured in padded yellow fins stirrups.
[2022-01-13] MEDS: IOPAMIDOL 50 ML VIAL INJ (14:11)
[2022-01-13] MEDS: BELLADONNA/OPIUM SUPPOSITORIES 1 EACH PR (15:03)
--- NOTE | 2022-01-13 15:21 | P.OP_ITS ---
Operative Date/Time/Diagnoses Date of procedure: 01/13/22 Time of procedure: 15:05 Pre-op diagnosis: 1. Multiple obstructing left mid ureteral calculi. 2. Stage IV CKD. 3. RAYMUNDO. 4. Retained left ureteral stent. Post-op diagnosis: same Procedure & Clinicians Procedure: 1. Cystoscopy/left retrograde pyelogram. 2. Cystoscopy/left ureteroscopic laser lithotripsy (complexity modifier should be assigned to this procedure. Length the procedure greater than 50% that expected. See findings below). 3. Cystoscopy/left ureteral stent exchange (8 New Zealander by 22-32 cm multi-length. Same procedure as scheduled: Yes Indications: 1. Multiple obstructing left mid ureteral calculi. 2. Stage IV CKD. 3. RAYMUNDO. 4. Retained left ureteral stent. Surgeon: Anh Roman Click Yes if Unassisted: Yes Anesthesia Type: General Operative Notes Findings: 1. Urethra-normal caliber and location without obstruction or lesion. 2. Bladder-mild edema and bullous edema in this a left ureteral orifice. Co ntents work clouded by blood suspended within retained urine volume. 3. Left ureter-upon passage of the scope retrograde into the distal left ureter, again was encountered bullous and edematous mucosal proliferation at L4/mid ureter. Initially no visible calculus was seen until intraoperative procedural maneuvers were performed as described below. Closure Type: not applicable Specimen(s): none sent Applied: other (Eight New Zealander by 22-32 cm multi-length stent.) Estimated Blood Loss (mL): 0 Blood products transfused: none Procedure in detail: The patient was positioned in supine and was administered general anesthesia. She was then repositioned in semi lithotomy and the lower abdomen, genitalia, groin prepped and draped in sterile fashion. Twenty-two New Zealander panendoscope was then passed the lower urinary tract with findings as described above. A foreign body grasper was then used to engage the distal end stone in the distal loop was then brought out to the perineum. A 0.35 hybrid guidewire was then advanced into the lumen of the retained left ureteral stent was advanced proximally under fluoroscopic guidance. The retained stent was then backloaded off the hybrid guidewire and was discarded. This wire was then secured to the surgical drape as a safety wire. The semi rigid ureteral scope was then prepared and the scope was passed the lower urinary tract and then insinuated into the left ureteral orifice and advanced proximally under direct visualization with the findings as described above. Due to lack of direct visual access to the offending index calculi, a 2nd hybrid guidewire advanced through the ureteral scope and under direct visualization was passed adjacent to the 1st hybrid guidewire that had been placed. Positioning was confirmed with fluoroscopy as well. Now the semi rigid ureteral scope was advanced over this guidewire proximally and into the significantly dilated proximal half the left ureter. This hybrid guidewire was then removed. The scope was then gently withdrawn under direct visualization. For calculi were encountered. Two small, approximately 4 mm in calculi freely lying in the lumen. Two other calculi 1 at least 5 wrap 6 mm in greatest dimension and a dominant 7+ mm calculus were both partially imbedded within the surface of the ureteral wall with mucosal growth and advancement over the edges circumferentially. Intraoperative photographs pre and post laser lithotripsy were obtained. A 200 micron laser fiber was requested. All operating room personnel were fitted with laser safety eyewear. Laser lithotripsy of the free aforementioned calculi was then conducted. Scope was then carefully withdrawn and each of the 2 partially imbedded calculi with mucosal proliferation and growth over the margins were then meticulously lithotripsy with the laser. The perimeter and base of the calculi were freed up from their embedded positions in their entirety. The fragments were broken down into tiny pieces and sand. A combination of hydrostatic and mechanical forces were employed to clear the ureter of any significant stone fragment burden. This was accomplished by starting at the UPJ and which find the scope toward the distal extent of the ureter twice. A 3rd look revealed no visible evidence of retained/residual fragments of size greater than 200 microns. The semi rigid ureteral scope was then removed. The panendoscope was then front loaded onto the safety wire and advanced into the bladder. An 8 New Zealander by 22-32 cm multi length stent was then selected. This was advanced over the hybrid guidewire under direct and fluoroscopic guidance. NO RETRIEVAL LINE WAS LEFT ATTACHED. The bladder is then drained completely and all instrumentation was removed. The patient was then awakened, transferred to [facility], and transported recovery awake and in stable condition. Complications: none Post-operative Condition: stable Disposition: PACU Plan for aftercare: 1. Transfer back to [facility]. 2. Outpatient follow-up in the Urology Clinic with CT KUB in 3-4 weeks and BMP.
[2022-01-13 15:25] VITALS: BP 138/73; PULSE 87; RESP 12; TEMP 36.5; O2SAT 99
[2022-01-13 15:30] VITALS: BP 139/75; PULSE 88; RESP 12; O2SAT 97
[2022-01-13 15:34] VITALS: BP 143/78; PULSE 89; RESP 16; TEMP 36.8; O2SAT 98
[2022-01-13 15:40] VITALS: BP 140/68; PULSE 85; RESP 21; TEMP 36.4; O2SAT 97
[2022-01-13] MEDS: HYDROCODONE/ACET 5/325 TABLET 1 TAB PO (15:45)
--- NOTE | 2022-01-13 16:01 | SUR.PHASEII ---
Dr Roman spoke with the patient, wants her to void/strain urine prior to discharge to SNF.
[2022-01-13 16:45] VITALS: BP 119/70; PULSE 79; RESP 20; TEMP 36.7; O2SAT 98
--- NOTE | 2022-01-13 19:10 | SUR.PREOP ---
Late entry: Assisted pt to dress after up to [facility] to void. Possible Stone debrie in strainer. Pt denied pain, much more styable and less weak than when was admitted. D/C instructions discussed with pt by Mary. Pt left unit when ready and left in stable condition.
[2022-01-17 08:34] LABS: Ca oxalate dihydrate 10 % (.); Ca oxalate monohydr 90 % (.); Size 3x3 mm (.)
== END 2022-01-13 16:45 ==
PROVIDERS: Family Provider Family Medicine; PCP Family Medicine; Referring Provider Specialist; Visit Provider Specialist
PROC: (CPT 52356; principal; 2022-01-13 12:45)
DX: N20.1 Calculus of ureter (principal); Z96.0 Presence of urogenital implants; N18.4 Chronic kidney disease, stage 4 (severe); N17.9 Acute kidney failure, unspecified; I12.9 Hypertensive chronic kidney disease with stage 1 through stage 4 chronic kidney disease, or unspecified chronic kidney disease; Z20.822 Contact with and (suspected) exposure to COVID-19
CPT/HCPCS: 52356; 74018; 76000; 82365; 87635; C1771; C9803; J0131; J0690; J1100; J1885; J2250; J2405; J2704; J3010

== ENCOUNTER → 2022-02-07 10:30 | Outpatient (CLI) | payer MEDICARE, OTHER, SELFPAY ==
[2021-07-01 22:54] VITALS: BMI 26.9
--- NOTE | 2022-02-07 10:31 | DI.RAD.S_ITS ---
PROCEDURE: XR KUB INDICATIONS: calculus of ureter TECHNIQUE: One view of the abdomen acquired. COMPARISON: [facility], CR, XR KUB, 01/13/2022, 11:58. [facility], CT, CT KIDNEY URETER BLADDER (KUB), 01/07/2022, 15:00. [facility], CR, XR KUB, 01/13/2022, 14:04. FINDINGS: Surgical changes and devices: Left ureteral stent is seen in expected position. Bowel: Bowel gas pattern is normal. Soft tissues: There is a questionable 4 mm calcification in the region of the left mid ureter at the level of the L5-S1 disc space that could represent a ureteral calculus or overlapping osseous structures. Probable small nonobstructing calculi are seen in the inferior pole of the left kidney. Previously seen right renal calculus is not seen, which may be related to overlying bowel gas. Visualized solid organ contours appear normal in size. Surgical material is seen projecting over the central abdomen. Bones: Levoconvex curvature and multilevel prominent degenerative changes are seen in the lumbar spine. Bilateral total hip arthroplasties. IMPRESSION: 1. Left ureteral stent in expected position. 2. Questionable 4 mm calcification adjacent to the midportion of the left ureteral stent, which could represent a ureteral calculus or artifact related to multiple overlapping osseous structures. 3. Probable small renal calculi at the inferior pole of the left kidney as seen on prior CT. Previously seen right renal calculus is not definitely visualized. Dictated by: Mingo Cortes M.D. on 02/07/2022 at 12:13 Approved by: Mingo Cortes M.D. on 02/07/2022 at 12:23
== END ==
PROVIDERS: Family Provider Family Medicine; PCP Family Medicine; Referring Provider Specialist; Visit Provider Specialist
DX: N20.1 Calculus of ureter (principal); Z96.0 Presence of urogenital implants; Z96.643 Presence of artificial hip joint, bilateral
CPT/HCPCS: 74018

== ENCOUNTER 2022-02-07 14:22 | Emergency (ER) | payer MEDICARE, OTHER, SELFPAY ==
[2021-07-01 22:54] VITALS: BMI 26.9
[2022-02-07 14:26] VITALS: BP 119/64; PULSE 89; RESP 15; TEMP 36.1; O2SAT 100; BMI 23.3
[2022-02-07 16:30] VITALS: BP 140/65; PULSE 78; RESP 20; O2SAT 99
--- NOTE | 2022-02-07 17:02 | ED_ITS ---
HPI - Skin/Abscess/Foreign Bdy <Heraclio Valentine PA-C - Last Filed: 02/07/22 20:20> General Chief complaint: Skin/Abscess/Foreign Body Stated complaint: Dr De La Rosa Skin on Back Evaluated Time Seen by Provider: 02/07/22 16:33 Source: patient Mode of arrival: Wheelchair Limitations: no limitations History of Present Illness HPI narrative: Patient is a 76-year-old female who presents with the emergency room today with complaint continued rash to her chest and back. Patient states the rash started last Thursday. Patient states she was seen on Thursday and diagnosed with shingles and was treated with acyclovir and steroids. Patient states she was seen a sound clear today and the provider informed her that he felt she was misdiagnosed and that she needs to be seen in the ER for her rash. Denies any pain with the rash and has been taking medications as ordered. States the rash is not painful and she only wants find out what it actually is. Also admits to having chronic kidney failure and is being treated by another provider. Related Data Home Medications Medication Instructions Recorded Confirmed acetaminophen 325 mg tablet 650 mg PO Q6H PRN Pain (Scale 06/30/21 02/11/22 Score 1-3) acetaminophen-caffeine 500 mg-65 2 tab PO Q6H PRN Headache 06/30/21 02/11/22 mg tablet (Excedrin Tension Headache) calcitriol 0.5 mcg capsule 0.5 mcg PO QAM 06/30/21 02/11/22 diphenoxylate-atropine 2.5 1 tab PO DAILY PRN Pain (Scale 06/30/21 02/11/22 mg-0.025 mg tablet (Lomotil) Score 1-3) hydrocodone 10 mg-acetaminophen 1 tab PO PRN PRN pain 06/30/21 02/11/22 325 mg tablet loperamide 2 mg capsule 8 mg PO BID 06/30/21 02/11/22 potassium citrate 10 mEq (1,080 10 meq PO DAILY 06/30/21 02/11/22 mg) tablet,extended release trazodone 50 mg tablet 100 mg PO QPM 06/30/21 02/11/22 triamcinolone acetonide 55 mcg 2 spray intranasal PRN PRN Allergy 06/30/21 02/11/22 nasal spray aerosol (Nasacort) Symptoms vitamin B complex 1 tab PO DAILY 06/30/21 02/11/22 Lactobacillus acidophilus 1 tab PO DAILY 01/07/22 02/11/22 [Probiotic Acidophilus] ferrous sulfate [Iron (ferrous 1 tab PO DAILY 01/07/22 02/11/22 sulfate)] fluoxetine 40 mg capsule (Prozac) 40 mg PO DAILY 01/07/22 02/11/22 furosemide 40 mg tablet (Lasix) 80 mg PO DAILY 01/07/22 02/11/22 Previous Rx's Medication Instructions Recorded ondansetron HCl 4 mg tablet 4 mg PO Q6H PRN nausea and 07/01/21 vomiting #14 tabs oxycodone 5 mg tablet 5 mg PO Q4H PRN pain #14 tabs 01/13/22 ospemifene 60 mg tablet (Osphena) 60 mg PO DAILY #30 tabs 01/17/22 doxycycline monohydrate 100 mg 100 mg PO BID #14 tabs 02/07/22 tablet doxycycline monohydrate 100 mg 100 mg PO BID #14 tabs 02/07/22 tablet Allergies Allergy/AdvReac Type Severity Reaction Status Date / Time pentazocine [From Nicki] Allergy Verified 02/11/22 13:59 Review of Systems <Heraclio Valentine PA-C - Last Filed: 02/07/22 20:20> Review of Systems Narrative: REVIEW OF SYSTEMS:. General: No weight change, generally healthy, no change in strength or exercise tolerance. No fever/chill. No fatigue. Head: No headaches, no vertigo, no injury. Eyes: Normal vision, no diplopia, no tearing, no scotomata, no pain. Ears: No change in hearing, no tinnitus, no bleeding, no vertigo. Nose: No epistaxis, no coryza, no obstruction, no discharge. Mouth: No dental difficulties, no gingival bleeding, no use of dentures. Neck: No stiffness, no pain, no tenderness, no noted masses. Chest: No dyspnea, no wheezing, no hemoptysis, no cough. Heart: No chest pains, no palpitations, no syncope, no orthopnea. Abdomen: No change in appetite, no dysphagia, no abdominal pains, no bowel habit changes, no emesis, no melena. Musculoskeletal: No pain in muscles or joints, no limitation of range of motion, no paresthesia or numbness. Neurologic: No weakness, no tremor, no seizures, no changes in mentation, no ataxia. Psychiatric: No depressive symptoms, no changes in sleep habits, no changes in thought content.. Skin: Rash to chest and back Patient History <Heraclio Valentine PA-C - Last Filed: 02/07/22 20:20> Medical History Acute kidney injury Acute renal failure Bilateral nephrolithiasis CKD stage 4 secondary to hypertension Depression with anxiety Essential hypertension History of renal calculi History of septic shock Left ureteral calculus Left ureteral calculus Renal disease Ureteral obstruction Surgical History History of bilateral hip replacements History of cervical spinal arthrodesis History of cholecystectomy History of gastric bypass History of hysterectomy History of laminectomy Family History Mother Asthma Father Heart disease Heart attack Social History household members: children and other Smoking Status: Never smoker alcohol intake: never Smoking Status: Never smoker Substance Use Type: does not use Exam <Heraclio Valentine PA-C - Last Filed: 02/07/22 20:20> Narrative Exam Narrative: Physical Exam: General: Normal appearance, well developed, well nourished, alert, and awake. Not in acute distress. ? Head: Normocephalic, no lesions. ?? Eyes: PERRLA, EOM's full, conjunctivae clear. ? Ears: EAC's clear, TM's normal. ?? Throat: Clear, no exudates, no lesions. ?? Neck: Supple, no masses, no thyromegaly, no bruits. ?? Chest: Lungs clear, no rales, no rhonchi, no wheezes. ?? Heart: RR, no murmurs, no rubs, no gallops. ?? Neuro: Physiological, no localizing findings, CN2-12 intact. ?? Extremities: Warm, well perfused, FROM, no deformities, no edema, no erythema. ?? PSYCHIATRIC: The mood is good, no blunted affect. Speech is clear. Thought process is linear, thought content is appropriate. The voice is without significant inflection.. Initial Vital Signs Initial Vital Signs: Vital Signs Temperature 97.0 F L 02/07/22 14:26 Pulse Rate 89 02/07/22 14:26 Respiratory Rate 15 02/07/22 14:26 Blood Pressure 119/64 02/07/22 14:26 Pulse Oximetry 100 02/07/22 14:26 Oxygen Delivery Method 02/07/22 14:26 <Heike Patton DO - Last Filed: 02/12/22 07:17> Initial Vital Signs Initial Vital Signs: Vital Signs Temperature 97.0 F L 02/07/22 14:26 Pulse Rate 89 02/07/22 14:26 Respiratory Rate 15 02/07/22 14:26 Blood Pressure 119/64 02/07/22 14:26 Pulse Oximetry 100 02/07/22 14:26 Oxygen Delivery Method 02/07/22 14:26 Course <Heraclio Valentine PA-C - Last Filed: 02/07/22 20:20> Orders Ordered: Discontinued Medications Hydrocodone Bitart/Acetaminophen (Hydrocodone/Acet 5/325 Tablet) 1 tab PO NOW ONE Stop: 02/07/22 17:10 Last Admin: 02/07/22 17:18 Dose: 1 tab Documented By: PLACIDO Ceftriaxone Sodium (Ceftriaxone 2,000 Mg Vial) 1,000 mg IM NOW ONE Stop: 02/07/22 18:51 Last Admin: 02/07/22 18:59 Dose: Not Given Documented By: PLACIDO Ceftriaxone Sodium (Ceftriaxone 2,000 Mg Vial) 1,000 mg IM NOW ONE Stop: 02/07/22 19:22 Last Admin: 02/07/22 19:47 Dose: 1,000 mg Documented By: AT Ceftriaxone Sodium 1,000 mg/ (Sodium Chloride) 100 mls @ 200 mls/hr IV NOW ONE Stop: 02/07/22 19:00 Last Admin: 02/07/22 19:34 Dose: Not Given Documented By: AT Lidocaine HCl (Lidocaine 1% (Pf)) 4.2 ml INJ NOW ONE Stop: 02/07/22 19:46 Last Admin: 02/07/22 19:48 Dose: 4.2 ml Documented By: AT Morphine Sulfate (Morphine 4 Mg/Ml Inj) 2 mg IV NOW ONE Stop: 02/07/22 16:57 Last Admin: 02/07/22 17:09 Dose: Not Given Documented By: AT Vital Signs Vital signs: Vital Signs - 8 hr 02/07/22 14:26 02/07/22 16:30 02/07/22 20:09 Temperature 97.0 F L Pulse Rate 89 78 83 Respiratory Rate 15 20 18 Blood Pressure 119/64 140/65 138/66 Pulse Oximetry 100 99 99 Oxygen Delivery Method Room Air Room Air Room Air <Heike Patton DO - Last Filed: 02/12/22 07:17> Orders Ordered: Discontinued Medications Hydrocodone Bitart/Acetaminophen (Hydrocodone/Acet 5/325 Tablet) 1 tab PO NOW ONE Stop: 02/07/22 17:10 Last Admin: 02/07/22 17:18 Dose: 1 tab Documented By: PLACIDO Ceftriaxone Sodium (Ceftriaxone 2,000 Mg Vial) 1,000 mg IM NOW ONE Stop: 02/07/22 18:51 Last Admin: 02/07/22 18:59 Dose: Not Given Documented By: PLACIDO Ceftriaxone Sodium (Ceftriaxone 2,000 Mg Vial) 1,000 mg IM NOW ONE Stop: 02/07/22 19:22 Last Admin: 02/07/22 19:47 Dose: 1,000 mg Documented By: AT Ceftriaxone Sodium 1,000 mg/ (Sodium Chloride) 100 mls @ 200 mls/hr IV NOW ONE Stop: 02/07/22 19:00 Last Admin: 02/07/22 19:34 Dose: Not Given Documented By: AT Lidocaine HCl (Lidocaine 1% (Pf)) 4.2 ml INJ NOW ONE Stop: 02/07/22 19:46 Last Admin: 02/07/22 19:48 Dose: 4.2 ml Documented By: AT Morphine Sulfate (Morphine 4 Mg/Ml Inj) 2 mg IV NOW ONE Stop: 02/07/22 16:57 Last Admin: 02/07/22 17:09 Dose: Not Given Documented By: AT Vital Signs Vital signs: Vital Signs - 8 hr 02/07/22 14:26 02/07/22 16:30 02/07/22 20:09 Temperature 97.0 F L Pulse Rate 89 78 83 Respiratory Rate 15 20 18 Blood Pressure 119/64 140/65 138/66 Pulse Oximetry 100 99 99 Oxygen Delivery Method Room Air Room Air Room Air MDM - Skin/Abscess/Foreign Bdy <Heraclio Valentine PA-C - Last Filed: 02/07/22 20:20> Lab Data Result diagrams: 02/07/22 17:34 02/07/22 17:34 Labs: Lab Results 02/07/22 02/07/22 02/07/22 Range/Units 17:34 17:34 17:34 WBC 4.5 (4.5-11.0) X10^3/uL RBC 2.75 L (4.0-5.2) X10^6/uL Hgb 9.4 L (12.0-16.0) g/dL Hct 27.9 L (36-46) % MCV 101.3 H (80-100) fL MCH 34.1 H (26-34) PG MCHC 33.7 (30-36) % RDW 14.1 (11.6-14.8) % Plt Count 141 L (150-400) X10^3/uL Neut % (Auto) 83.0 H (50-75) % Lymph % (Auto) 14.5 L (25-40) % [place] % (Auto) 2.1 L (3-14) % Eos % (Auto) 0.0 L (2-4) % Baso % (Auto) 0.4 (0-2) % Neut # (Auto) 3700 (6572-6277) /uL Lymph # (Auto) 700 L (1860-0003) /uL [place] # (Auto) 100 (0-900) /uL Eos # (Auto) 0 (0-450) /uL Baso # (Auto) 0 (0-100) /uL ESR 46 H (0-20) MM/HR Sodium 133 L (137-145) mmol/L Potassium 3.4 (3.4-5.1) mmol/L Chloride 92 L (98-107) mmol/L Carbon Dioxide 22 (22-32) mmol/L BUN 89 H (7-17) mg/dL Creatinine 4.47 H (0.52-1.04) mg/dL Estimated GFR 10 L (>60) mL/min BUN/Creatinine Ratio 19.9 (6-22) Glucose 134 H (80-110) mg/dL Lactate (0.7-2.1) mmol/L Calcium 9.0 (8.4-10.2) mg/dL Total Bilirubin 0.5 (0.2-1.3) mg/dL AST 25 (14-36) IU/L ALT 25 (<35) IU/L Alkaline Phosphatase 90 (38-126) U/L C-Reactive Protein 1.3 H (<1.0) mg/dL Total Protein 7.3 (6.3-8.2) g/dL Albumin 4.0 (3.5-5.0) g/dL Globulin 3.3 (1.7-4.1) g/dL Albumin/Globulin Ratio 1.2 (1.0-2.8) Procalcitonin 0.45 (<0.5) ng/mL 02/07/22 Range/Units 17:34 WBC (4.5-11.0) X10^3/uL RBC (4.0-5.2) X10^6/uL Hgb (12.0-16.0) g/dL Hct (36-46) % MCV (80-100) fL MCH (26-34) PG MCHC (30-36) % RDW (11.6-14.8) % Plt Count (150-400) X10^3/uL Neut % (Auto) (50-75) % Lymph % (Auto) (25-40) % [place] % (Auto) (3-14) % Eos % (Auto) (2-4) % Baso % (Auto) (0-2) % Neut # (Auto) (4469-7028) /uL Lymph # (Auto) (6260-2917) /uL [place] # (Auto) (0-900) /uL Eos # (Auto) (0-450) /uL Baso # (Auto) (0-100) /uL ESR (0-20) MM/HR Sodium (137-145) mmol/L Potassium (3.4-5.1) mmol/L Chloride (98-107) mmol/L Carbon Dioxide (22-32) mmol/L BUN (7-17) mg/dL Creatinine (0.52-1.04) mg/dL Estimated GFR (>60) mL/min BUN/Creatinine Ratio (6-22) Glucose (80-110) mg/dL Lactate 1.1 (0.7-2.1) mmol/L Calcium (8.4-10.2) mg/dL Total Bilirubin (0.2-1.3) mg/dL AST (14-36) IU/L ALT (<35) IU/L Alkaline Phosphatase (38-126) U/L C-Reactive Protein (<1.0) mg/dL Total Protein (6.3-8.2) g/dL Albumin (3.5-5.0) g/dL Globulin (1.7-4.1) g/dL Albumin/Globulin Ratio (1.0-2.8) Procalcitonin (<0.5) ng/mL Imaging Data KUB: Radiologist's Impression: PROCEDURE:? XR KUB ? INDICATIONS:? calculus of ureter ? TECHNIQUE:? One view of the abdomen acquired.? ? COMPARISON:? [facility], CR, XR KUB, 01/13/2022, 11:58.? [facility], CT, CT KIDNEY URETER BLADDER (KUB), 01/07/2022, 15:00.? [facility], CR, XR KUB, , 14:04. ? FINDINGS:? ? Surgical changes and devices:? Left ureteral stent is seen in expected position. ? Bowel:? Bowel gas pattern is normal.? ? Soft tissues:? There is a questionable 4 mm calcification in the region of the left mid ureter at the level of the L5-S1 disc space that could represent a ureteral calculus or overlapping osseous structures.? Probable small nonobstructing calculi are seen in the inferior pole of the left kidney.? Previously seen right renal calculus is not seen, which may be related to overlying bowel gas.? Visualized solid organ contours appear normal in size.? Surgical material is seen projecting over the central abdomen. ? Bones:? Levoconvex curvature and multilevel prominent degenerative changes are seen in the lumbar spine.? Bilateral total hip arthroplasties. ? IMPRESSION:? 1. Left ureteral stent in expected position. 2. Questionable 4 mm calcification adjacent to the midportion of the left ureteral stent, which could represent a ureteral calculus or artifact related to multiple overlapping osseous structures. 3. Probable small renal calculi at the inferior pole of the left kidney as seen on prior CT.? Previously seen right renal calculus is not definitely visualized. ? ? Dictated by: Mingo Cortes M.D. on 02/07/2022 at 12:13 ? ? Approved by: Mingo Cortes M.D. on 02/07/2022 at 12:23 ? MDM Narrative Medical decision making narrative: Patient patient is a 76-year-old female who presents to the emergency room today with complaint rash to her chest and back. Patient states this rash started last Thursday. Patient states she was seen by a provider at [facility] on Thursday of this week and diagnosed with shingles. She states at that time she was given acyclovir and prednisone she had been taken since that time. States that today she was seen by a provider at [facility] and was told that they are not sure about her diagnosis and that she should be seen in the emergency room today. Provider was seen today to have a rash that could not be ruled out for shingles. Routine labs were drawn to rule out acute infection or related concerns. Viral cultures taken to rule out or rule in exact viral exanthem. Antibiotics were administered today to include Rocephine 1 g IM. Patient was sent home with oral doxycycline and to cover potential MRSA or infections. KUB was done at this visit and confirmed renal stent and calculi. <Heike Patton, DO - Last Filed: 02/12/22 07:17> Lab Data Labs: Lab Results 02/07/22 02/07/22 02/07/22 Range/Units 17:34 17:34 17:34 WBC 4.5 (4.5-11.0) X10^3/uL RBC 2.75 L (4.0-5.2) X10^6/uL Hgb 9.4 L (12.0-16.0) g/dL Hct 27.9 L (36-46) % MCV 101.3 H (80-100) fL MCH 34.1 H (26-34) PG MCHC 33.7 (30-36) % RDW 14.1 (11.6-14.8) % Plt Count 141 L (150-400) X10^3/uL Neut % (Auto) 83.0 H (50-75) % Lymph % (Auto) 14.5 L (25-40) % [place] % (Auto) 2.1 L (3-14) % Eos % (Auto) 0.0 L (2-4) % Baso % (Auto) 0.4 (0-2) % Neut # (Auto) 3700 (7299-4537) /uL Lymph # (Auto) 700 L (8512-7319) /uL [place] # (Auto) 100 (0-900) /uL Eos # (Auto) 0 (0-450) /uL Baso # (Auto) 0 (0-100) /uL ESR 46 H (0-20) MM/HR Sodium 133 L (137-145) mmol/L Potassium 3.4 (3.4-5.1) mmol/L Chloride 92 L (98-107) mmol/L Carbon Dioxide 22 (22-32) mmol/L BUN 89 H (7-17) mg/dL Creatinine 4.47 H (0.52-1.04) mg/dL Estimated GFR 10 L (>60) mL/min BUN/Creatinine Ratio 19.9 (6-22) Glucose 134 H (80-110) mg/dL Lactate (0.7-2.1) mmol/L Calcium 9.0 (8.4-10.2) mg/dL Total Bilirubin 0.5 (0.2-1.3) mg/dL AST 25 (14-36) IU/L ALT 25 (<35) IU/L Alkaline Phosphatase 90 (38-126) U/L C-Reactive Protein 1.3 H (<1.0) mg/dL Total Protein 7.3 (6.3-8.2) g/dL Albumin 4.0 (3.5-5.0) g/dL Globulin 3.3 (1.7-4.1) g/dL Albumin/Globulin Ratio 1.2 (1.0-2.8) Procalcitonin 0.45 (<0.5) ng/mL 02/07/22 Range/Units 17:34 WBC (4.5-11.0) X10^3/uL RBC (4.0-5.2) X10^6/uL Hgb (12.0-16.0) g/dL Hct (36-46) % MCV (80-100) fL MCH (26-34) PG MCHC (30-36) % RDW (11.6-14.8) % Plt Count (150-400) X10^3/uL Neut % (Auto) (50-75) % Lymph % (Auto) (25-40) % [place] % (Auto) (3-14) % Eos % (Auto) (2-4) % Baso % (Auto) (0-2) % Neut # (Auto) (6818-8676) /uL Lymph # (Auto) (2073-0462) /uL [place] # (Auto) (0-900) /uL Eos # (Auto) (0-450) /uL Baso # (Auto) (0-100) /uL ESR (0-20) MM/HR Sodium (137-145) mmol/L Potassium (3.4-5.1) mmol/L Chloride (98-107) mmol/L Carbon Dioxide (22-32) mmol/L BUN (7-17) mg/dL Creatinine (0.52-1.04) mg/dL Estimated GFR (>60) mL/min BUN/Creatinine Ratio (6-22) Glucose (80-110) mg/dL Lactate 1.1 (0.7-2.1) mmol/L Calcium (8.4-10.2) mg/dL Total Bilirubin (0.2-1.3) mg/dL AST (14-36) IU/L ALT (<35) IU/L Alkaline Phosphatase (38-126) U/L C-Reactive Protein (<1.0) mg/dL Total Protein (6.3-8.2) g/dL Albumin (3.5-5.0) g/dL Globulin (1.7-4.1) g/dL Albumin/Globulin Ratio (1.0-2.8) Procalcitonin (<0.5) ng/mL Discharge Plan Departure Patient Disposition: Home Clinical Impression: Shingles, Superficial bacterial infection of skin Instructions: Cellulitis, DI for Shingles Activity Restrictions/Additional Instructions: *You have been diagnosed with [shingles and unassociated infection of the skin. I suggest you continue to take acyclovir and prednisone as ordered. You were also given an antibiotic for skin infections in the emergency room today and I ordered antibiotics for you to take at home for your skin infection for the next 7 days. I suggest you take all antibiotics as ordered. I also suggest you try and keep the area clean and free from foreign body. Please return to the emergency room if any emergent concerns arise to include worsening of the skin infection fever or other respiratory or gastrointestinal related concerns.] *What to do: *Please continue to take your regular medications as directed. [x] New medication prescriptions sent to your pharmacy: [ ] [ ] New medication written as a paper prescription [ ] No new medications given *Please follow up with your primary care provider in 2-3 days, call for an appointment. Let them know you were seen in the Emergency Department and that we ask that you be seen in follow up. We will electronically transmit a record of today's note if your PCP is in our system *If you do not have a primary care provider please contact the [facility] Resource line at [phone]. They will ask some questions about your medical history and help get you set up with a doctor in the community. *Return to Emergency Department if you should have any new, worsening or concerning symptoms, such as [fever greater than 101 F, shaking chills, worsening pain, persistent vomiting or other bothersome symptoms] Prescriptions: New doxycycline monohydrate 100 mg tablet 100 mg PO BID Qty: 14 0RF doxycycline monohydrate 100 mg tablet 100 mg PO BID Qty: 14 0RF No Action Osphena 60 mg tablet 60 mg PO DAILY Qty: 30 11RF Rx Instructions: must administer with food, preferably a high-fat meal acetaminophen 325 mg Tablet 650 mg PO Q6H PRN (Reason: Pain (Scale Score 1-3)) loperamide 2 mg Capsule 8 mg PO BID trazodone 50 mg tablet 100 mg PO QPM Excedrin Tension Headache 500-65 mg Tablet 2 tab PO Q6H PRN (Reason: Headache) diphenoxylate-atropine [Lomotil] 2.5-0.025 mg Tablet 1 tab PO DAILY PRN (Reason: Pain (Scale Score 1-3)) hydrocodone-acetaminophen 10-325 mg tablet 1 tab PO PRN PRN (Reason: pain) potassium citrate 10 mEq (1,080 mg) tablet extended release 10 meq PO DAILY calcitriol 0.5 mcg capsule 0.5 mcg PO QAM triamcinolone acetonide [Nasacort] 55 mcg Aerosol,[place] 2 spray INTRANASAL PRN PRN (Reason: Allergy Symptoms) Rx Instructions: administer into each nostril vitamin B complex Tablet 1 tab PO DAILY Rx Instructions: 500 mcg ondansetron HCl 4 mg tablet 4 mg PO Q6H PRN (Reason: nausea and vomiting) Qty: 14 0RF oxycodone 5 mg tablet 5 mg PO Q4H PRN (Reason: pain) Qty: 14 0RF furosemide [Lasix] 40 mg tablet 80 mg PO DAILY ferrous sulfate [Iron (ferrous sulfate)] 1 tab PO DAILY fluoxetine [Prozac] 40 mg capsule 40 mg PO DAILY Lactobacillus acidophilus [Probiotic Acidophilus] 1 tab PO DAILY Referrals: Jann Boston MD [Primary Care Provider] - Visit Report Forms: Patient Portal/API <Heike Abdi, - Last Filed: 02/12/22 07:17> Cosign ED Attending Cosignature Attestation: Patient seen evaluated by myself along with APC. It does appear that she has a severe case of shingles with a possible infection as well. She is being treated with valacyclovir. Kidney function is noted to be slightly worse today at 4.47 with previously creatinine of 2.27. She was very resistant initially to have blood work and IV. She does have elevated ESR in seizure PE likely inflamed. She overall is not septic she is afebrile without leukocytosis. Initially a dose of IV antibiotics ordered however she did wait for that. She is given doxycycline there is no renal dosing with that. She very much wants to follow up with Dermatology from [facility]. It is questionable if rash crosses midline or not. Although based on the rash looks like I do suspect shingles. Viral culture. It does not appear to be a Mathews Jason's syndrome or TENS there is no mucosal membrane involvement, isolated. I was immediately available in the department for consultation. Documentation has been reviewed. I agree with assessment and plan.
[2022-02-07] MEDS: HYDROCODONE/ACET 5/325 TABLET 1 TAB PO (17:18)
[2022-02-07 17:58] LABS: Add Manual Diff / Slide Review NO; Basophils Absolute Auto 0 /uL (0-100); Basophils Percent Auto 0.4 % (0-2); Eosinophils Absolute Auto 0 /uL (0-450); Hematocrit 27.9 % (36-46); Hemoglobin 9.4 g/dL (12.0-16.0); Lymphocytes Absolute Auto 700 /uL (1100-4500); Lymphocytes Percent Auto 14.5 % (25-40); Mean Corpuscular HGB Conc 33.7 % (30-36); Mean Corpuscular Hemoglobin 34.1 PG (26-34); Mean Corpuscular Volume 101.3 fL (80-100); Monocytes Absolute Auto 100 /uL (0-900); Monocytes Percent Auto 2.1 % (3-14); Neutrophils Absolute Auto 3700 /uL (1500-7000); Platelet Count 141 X10^3/uL (150-400); Red Blood Cell Count 2.75 X10^6/uL (4.0-5.2); Red Cell Distribution Width 14.1 % (11.6-14.8); White Blood Cell Count 4.5 X10^3/uL (4.5-11.0)
[2022-02-07 18:27] LABS: Lactate (Lactic Acid) 1.1 mmol/L (0.7-2.1)
[2022-02-07 18:29] LABS: Alanine Aminotransferase 25 IU/L (<35); Albumin Globulin Ratio 1.2 (1.0-2.8); Alkaline Phosphatase 90 U/L (38-126); Aspartate Aminotransferase 25 IU/L (14-36); BUN Creatinine Ratio 19.9 (6-22); Bilirubin Total 0.5 mg/dL (0.2-1.3); Blood Urea Nitrogen 89 mg/dL (7-17); C-Reactive Protein Quant 1.3 mg/dL (<1.0); Carbon Dioxide 22 mmol/L (22-32); Chloride 92 mmol/L (98-107); Estimated Glomerular Filt Rate 10 mL/min (>60); Globulin 3.3 g/dL (1.7-4.1); Glucose 134 mg/dL (80-110); HEMOLYSIS < 15 (0-50); Potassium 3.4 mmol/L (3.4-5.1); Sodium 133 mmol/L (137-145); Total Protein 7.3 g/dL (6.3-8.2)
[2022-02-07 18:33] LABS: Erythrocyte Sedimentation Rate 46 MM/HR (0-20)
[2022-02-07 18:42] LABS: Procalcitonin 0.45 ng/mL (<0.5)
[2022-02-07] MEDS: cefTRIAXone 2,000 MG VIAL 1000 MG IM (19:47)
[2022-02-07] MEDS: LIDOCAINE 1% (PF) 4.2 ML INJ (19:48)
[2022-02-07 20:09] VITALS: BP 138/66; PULSE 83; RESP 18; O2SAT 99
--- NOTE | 2022-02-07 20:15 | PC.NURSE ---
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
== END 2022-02-07 20:37 | disposition home or self-care (01) ==
PROVIDERS: Emergency Medicine; Emergency Provider Physician Assistant; Family Provider Family Medicine; PCP Family Medicine
DX: B02.9 Zoster without complications (principal); L03.313 Cellulitis of chest wall; L03.312 Cellulitis of back [any part except buttock and flank]; Z96.0 Presence of urogenital implants; Z96.643 Presence of artificial hip joint, bilateral
CPT/HCPCS: 36415; 74018; 80053; 83605; 84145; 85025; 85651; 86140; 87040; 87070; 87075; 87205; 87252; 96372; 99283; 99284; J0696